=== PATIENT | male | born 1950 | race Caucasian/White ===

== ENCOUNTER → 2021-05-08 | Outpatient (CLI) | payer MEDICARE | LOC: CARD 09:06 | PROVIDERS: ATTEND Family Medicine | DX: I51.7 Cardiomegaly (principal) | CPT/HCPCS: 93306 ==

== ENCOUNTER → 2021-06-14 | Outpatient (CLI) | payer MEDICARE ==
[~2021-06-14] VITALS: Ht 172 cm; Wt 107.0 kg
[~2021-06-14] MED LIST: CATHETER FLUSH 10 ML SYR IV PRN
[2021-06-14 08:47] VITALS: BP 157/70
--- NOTE | 2021-06-14 15:25 | NUCLEAR STRESS TEST ---
TREADMILL NUCLEAR STRESS TEST Date of procedure: 06/14/2021. Primary care provider: Obed Godinez MD. Admitting physician: Soham Reynolds Jr., MD. INDICATION: Abnormal ECG. BASELINE ELECTROCARDIOGRAM: Sinus rhythm with occasional premature ventricular complexes, left anterior hemiblock and right bundle branch block. STRESS TEST PROCEDURE: The patient was exercised for a total of 8 minutes and 26 seconds of the standard Paulo protocol achieving a maximum MET level of 9.7. The resting heart rate was 65 bpm and the peak heart rate was 124 bpm, which represents 82% of the maximum predicted heart rate. The resting blood pressure was 157/70 mmHg and the peak blood pressure was 213/74 mmHg. This represents a suboptimal heart rate and a hypertensive blood pressure response to exercise. The test was stopped due to fatigue. There was no chest discomfort during the test. There were no arrhythmias during the test. There were no significant stress induced electrocardiogram changes. The patient exhibited excellent exercise capacity for age. NUCLEAR PROCEDURE: The patient was administered 10.4 mCi of intravenous technetium 99m Tetrofosmin at rest for the rest images. The patient was subsequently administered 29.4 mCi of intravenous technetium 99 M Tetrofosmin at peak stress for the stress images. Following an appropriate wait after each injection, imaging was obtained. The images were subsequently processed and reformatted in the usual views. Gated imaging was obtained. The image quality was adequate but with some gastrointestinal attenuation artifact. CT attenuation correction was used as an adjunct to standard imaging. Both the corrected and uncorrected images were reviewed for interpretation. NUCLEAR RESULTS: There was normal myocardial perfusion in all segments without evidence of infarction or ischemia. There was normal left ventricular chamber size with an end-diastolic volume of 65 mL and an end-systolic volume of 19 mL. There was no evidence of transient ischemic dilatation. The TID ratio was 1.03. There was normal wall motion in all segments with a calculated ejection fraction of 71%. IMPRESSION: 1. Suboptimal heart rate and a hypertensive blood pressure response to exercise. 2. There was no exercise-induced chest discomfort. 3. There were frequent premature ventricular complexes throughout the test. 4. There were no stress-induced electrocardiogram changes. 5. The patient exhibited excellent exercise capacity for age at 8 minutes and 26 seconds of the Paulo protocol. 6. There was normal myocardial perfusion imaging in all segments without evidence of infarction or ischemia. However, the patient did not quite reach his target heart rate. 7. There was normal wall motion in all segments with a calculated ejection f raction of 71%. Certain portions of this document may have been dictated utilizing voice recognition technology. Inherent to this technology, typographical and grammatical errors may exist. As much as I am diligent to identify and correct these mistakes, some errors may remain in the document. SOHAM REYNOLDS JR, MD Jun 14, 2021 15:25
== END ==
LOC: CARD 07:26
PROVIDERS: ATTEND Internal Medicine Cardiovascular Disease
DX: R94.31 Abnormal electrocardiogram [ECG] [EKG] (principal)
CPT/HCPCS: 78452; 93017; A9502

== ENCOUNTER → 2021-07-19 | Outpatient (CLI) | payer MEDICARE ==
[2021-07-19 12:15] LABS: CALCIUM 9.4 MG/DL (8.5-10.1); CREATININE SERUM 1.19 MG/DL (0.60-1.30); POTASSIUM 4.1 MMOL/L (3.6-5.0)
== END ==
LOC: LAB 11:17
PROVIDERS: ATTEND Internal Medicine Cardiovascular Disease
DX: I10 Essential (primary) hypertension (principal)
CPT/HCPCS: 36415; 80048

== ENCOUNTER → 2022-12-06 | Outpatient (CLI) | payer MEDICARE | LOC: CARD 10:46 | PROVIDERS: ATTEND Family Medicine | DX: I11.9 Hypertensive heart disease without heart failure (principal); I08.0 Rheumatic disorders of both mitral and aortic valves; E11.69 Type 2 diabetes mellitus with other specified complication | CPT/HCPCS: 93306 ==

== ENCOUNTER → 2022-12-09 | Outpatient (CLI) | payer MEDICARE ==
[~2022-12-09] MED LIST changes: -CATHETER FLUSH 10 ML SYR IV PRN; +RT-ALBUTEROL SULF 2.5 MG/3 ML PRE-MIX VIAL INH ONE
== END ==
LOC: RT 12:21
PROVIDERS: ATTEND Family Medicine
DX: Z00.00 Encounter for general adult medical examination without abnormal findings (principal); R06.02 Shortness of breath
CPT/HCPCS: 94060; 94726; 94729

== ENCOUNTER 2022-12-13 11:52 | Inpatient (IN) | payer MEDICARE ==
[~2022-12-13] VITALS: Ht 172.7 cm; Wt 112.6 kg
--- NOTE | 2022-12-13 12:23 | ED General ---
General Chief Complaint: Respiratory Problems Stated Complaint: FLUID BUILDUP Nursing Triage Note: PT PRESENTS TO ED VIA POV FROM HOME WITH COMPLAINTS OF INCREASED SWELLING X 6 DAYS WITH INCREASED SOA. PT STATES HE HAD ECHO DONE 1 WEEK AGO WELL A PULMONARY FUNCTION TEST ON FRIDAY. PT STATES HE WAS STARTED ON 20 MG LASIX ON FRIDAY BUT HAS NOT SEEN IMPROVEMENT. Source of Information: Patient Exam Limitations: No Limitations History of Present Illness Date Seen by Provider: Dec 13, 2022 Time Seen by Provider: 12:19 Initial Comments To ER by private vehicle. Patient provides his own history. He has had new onset pedal edema for 6 days with increased shortness of breath. He had an echocardiogram done 1 week ago here as well as pulmonary function test. His primary care provider Could not he started him on 20 mg of Lasix 2 days ago but he has not yet noticed any improvement in the swelling of his ankles or dyspnea. States that he has had palpitations off and on for many years but no diagnosis of atrial fibrillation. Does not smoke and has no known coronary disease. He was told on his echocardiogram that part of his heart was not moving consistent with prior heart attack. Timing/Duration: 1 Week, Getting Worse Severity: Moderate Associated Systoms: No Chest Pain Allergies and Home Medications Allergies Coded Allergies: codeine (Unverified Allergy, Unknown, 06/14/21) Patient Home Medication List Home Medication List Reviewed: Yes Review of Systems Review of Systems Constitutional: see HPI; No chills, No fever Past Ydsxhjr-Siwziq-Pkkgwg Hx Patient Social History Tobacco Use?: No Substance use?: No Alcohol Use?: Yes Alcohol Frequency: Couple times a week Pt feels they are or have been: No Past Medical History Surgery/Hospitalization HX: PMH: HTN, HIGH CHOL, DM Physical Exam Vital Signs Vital Signs - First Documented 12/13/22 11:59 Temp 36.0 Pulse 78 Resp 16 B/P (MAP) 130/106 (114) Pulse Ox 98 Capillary Refill : Less Than 3 Seconds Height, Weight, BMI Height: '" Weight: lbs. oz. kg; 36.00 BMI Method: General Appearance: No Apparent Distress, WD/WN, Other (Alert and oriented no distress very pleasant no distress speaks in full sentences. Oxygen 98% room air. Heart rate 1 45-1 50 irregular. Blood pressure 130/100.) Eyes: Bilateral Eye Normal Inspection, Bilateral Eye PERRL, Bilateral Eye EOMI Neck: Full Range of Motion, Normal Inspection Respiratory: No Accessory Muscle Use, No Respiratory Distress, Other (Crackles right base) Cardiovascular: Irregularly Irregular, Tachycardia Gastrointestinal: Normal Bowel Sounds, Non Tender, Soft Extremity: Normal Capillary Refill, Normal Inspection, Other (2+ pedal edema bilateral lower extremities) Neurologic/Psychiatric: Alert, Oriented x3 Skin: Normal Color, Warm/Dry Progress/Results/Core Measures Suspected Sepsis SIRS Temperature: Pulse: 78 Respiratory Rate: 16 Laboratory Tests 12/13/22 12:04: White Blood Count 6.4 Blood Pressure 130 /106 Mean: 114 Laboratory Tests 12/13/22 12:04: Creatinine 1.44H, INR Comment 1.3, Platelet Count 160, Total Bilirubin 1.2H Results/Orders Lab Results Laboratory Tests Test 12/13/22 12:04 Range/Units White Blood Count 6.4 4.3-11.0 10^3/uL Red Blood Count 4.37 4.30-5.52 10^6/uL Hemoglobin 14.7 13.3-17.7 g/dL Hematocrit 44 40-54 % Mean Corpuscular Volume 100 H 80-99 fL Mean Corpuscular Hemoglobin 34 25-34 pg Mean Corpuscular Hemoglobin Concent 34 32-36 g/dL Red Cell Distribution Width 13.7 10.0-14.5 % Platelet Count 160 130-400 10^3/uL Mean Platelet Volume 11.4 9.0-12.2 fL Immature Granulocyte % (Auto) 1 % Neutrophils (%) (Auto) 59 42-75 % Lymphocytes (%) (Auto) 26 12-44 % Monocytes (%) (Auto) 14 H 0-12 % Eosinophils (%) (Auto) 0 0-10 % Basophils (%) (Auto) 0 0-10 % Neutrophils # (Auto) 3.8 1.8-7.8 10^3/uL Lymphocytes # (Auto) 1.7 1.0-4.0 10^3/uL Monocytes # (Auto) 0.9 0.0-1.0 10^3/uL Eosinophils # (Auto) 0.0 0.0-0.3 10^3/uL Basophils # (Auto) 0.0 0.0-0.1 10^3/uL Immature Granulocyte # (Auto) 0.1 0.0-0.1 10^3/uL Prothrombin Time 16.6 H 12.2-14.7 SEC INR Comment 1.3 0.8-1.4 Activated Partial Thromboplast Time 30 24-35 SEC Sodium Level 134 L 135-145 MMOL/L Potassium Level 3.7 3.6-5.0 MMOL/L Chloride Level 99 98-107 MMOL/L Carbon Dioxide Level 20 L 21-32 MMOL/L Anion Gap 15 H 5-14 MMOL/L Blood Urea Nitrogen 18 7-18 MG/DL Creatinine 1.44 H 0.60-1.30 MG/DL Estimat Glomerular Filtration Rate 52 BUN/Creatinine Ratio 13 Glucose Level 211 H 70-105 MG/DL Calcium Level 9.5 8.5-10.1 MG/DL Corrected Calcium 9.3 8.5-10.1 MG/DL Magnesium Level 2.0 1.6-2.4 MG/DL Total Bilirubin 1.2 H 0.1-1.0 MG/DL Aspartate Amino Transf (AST/SGOT) 108 H 5-34 U/L Alanine Aminotransferase (ALT/SGPT) 169 H 0-55 U/L Alkaline Phosphatase 79 40-136 U/L Myoglobin 106.3 H 10.0-92.0 NG/ML Troponin I 0.050 H <0.028 NG/ML B-Type Natriuretic Peptide 940.0 H <100.0 PG/ML Total Protein 6.8 6.4-8.2 GM/DL Albumin 4.3 3.2-4.5 GM/DL My Orders Orders - JERICHO ERICKSON APRN Cbc With Automated Diff (12/13/22 12:17) Magnesium (12/13/22 12:17) Chest 1 View, Ap/Pa Only (12/13/22 12:17) Ekg Tracing (12/13/22 12:17) Comprehensive Metabolic Panel (12/13/22 12:17) Myoglobin Serum (12/13/22 12:17) Protime With Inr (12/13/22 12:17) Partial Thromboplastin Time (12/13/22 12:17) O2 (12/13/22 12:17) Monitor-Rhythm Ecg Trace Only (12/13/22 12:17) Lipid Panel (12/14/22 06:00) Ed Iv/Invasive Line Start (12/13/22 12:17) Bnp Hannah (12/13/22 12:17) Troponin I Hannah (12/13/22 12:17) Aspirin Chewable Tablet (Baby Aspirin Ch (12/13/22 12:30) Diltiazem Drip Pre-Mix (Cardizem Drip Pr (12/13/22 12:30) Diltiazem Injection (Cardizem Injection) (12/13/22 12:30) Ekg Tracing (12/13/22 12:58) Furosemide Injection (Lasix Injection) (12/13/22 13:30) Potassium Chloride (Tablet) (K Dur Table (12/13/22 14:00) Apixaban Tablet (Eliquis Tablet) (12/13/22 14:00) Ed Admission (Communication) (12/13/22 13:46) Medications Given in ED Current Medications Medications Dose Ordered Sig/Isaac Route Start Time Stop Time Status Last Admin Dose Admin Aspirin 324 mg ONCE ONCE PO 12/13/22 12:30 12/13/22 12:31 DC 12/13/22 12:29 324 MG Diltiazem HCl 10 mg ONCE ONCE IVP 12/13/22 12:30 12/13/22 12:31 DC 12/13/22 12:28 10 MG Furosemide 40 mg ONCE ONCE IVP 12/13/22 13:30 12/13/22 13:31 DC 12/13/22 13:30 40 MG Vital Signs/I&O 12/13/22 12/13/22 12/13/22 11:59 12:28 12:29 Temp 36.0 Pulse 78 144 144 Resp 16 B/P (MAP) 130/106 (114) 131/100 131/100 Pulse Ox 98 Capillary Refill : Less Than 3 Seconds Blood Pressure Mean: 114 Departure Communication (Admissions) NAME: DESMOND WICK [facility] REC#: [id number] PT STATUS: REG ER : 1950 PHYSICIAN: JERICHO ERICKSON APRN ADMIT DATE: 12/13/22/ER Draft Date of Exam:12/13/22 CHEST 1 VIEW, AP/PA ONLY Indication: Dyspnea and increasing swelling AP view of the chest is obtained. There is no previous study for comparison. There is cardiomegaly with mild pulmonary venous congestion. No obvious overt edema is present. There is mild basilar atelectasis, greater on the right. IMPRESSION: Cardiomegaly and mild pulmonary venous congestion with mild basilar atelectasis, greater on the right. No other acute abnormality is seen. Dictated on workstation # [id number] Dict: 12/13/22 1312 Trans: 12/13/22 1314 [facility] [id number] Interpreted by: ISABELL KU MD showing cavity size normal with moderate concentric hypertrophy more significant in the septum with mildly reduced systolic function with an ejection fraction of 45 to 50%. Hypokinesis of the apical septum and apical myocardium. EKG reviewed here showing a rate of 139 regular with QRS duration of 160 ms with computer inter pretation is junctional tachycardia which I would agree with, absent P waves and regular QRS complexes. 1310-heart rate has slowed down to 74 atrial fibrillation. Blood pressure remains 119/89. This is with a Cardizem drip at 10 mg an hour after 10 mg umair mikhail. He does feel significantly better in regards to his shortness of breath. I did turn off the Cardizem drip for about 5 minutes before his rate increased back to 130 so the drip was restarted at 10 mg an hour. 1330-labs back. Troponin mildly elevated at 0.050 though he denies chest pain. BNP elevated at 940, CBC looks fine, CMP shows elevated liver enzymes. 40 mg of Lasix ordered IV here. Repeat EKG at the slower rate shows sinus rhythm with multiple PAC and PVC. 1351-spoke with Dr. Solares, will start Desmond on Eliquis 5 mg p.o. twice daily, Lasix 40 mg IV twice daily, potassium supplementation at 20 mEq p.o. twice daily. We will continue the Cardizem drip and he will transition that to p.o. Will admit to ICU to Dr. Vitale. Impression Primary Impression: CHF (congestive heart failure) Additional Impression: Junctional tachycardia Disposition: ADMITTED INPATIENT Condition: Stable Admissions Decision to Admit Reason: Admit from ER (General) Departure-Patient Inst. Referrals: GUSTAVO MCELROY MD (PCP/Family) Primary Care Physician JERICHO ERICKSON APRN Dec 13, 2022 12:23
[2022-12-13 12:28] LABS: BASOPHILS % (AUTO) 0 % (0-10); EOSINOPHILS % (AUTO) 0 % (0-10); HEMATOCRIT 44 % (40-54); HEMOGLOBIN 14.7 g/dL (13.3-17.7); LYMPHOCYTES # (AUTO) 1.7 10^3/uL (1.0-4.0); LYMPHOCYTES % (AUTO) 26 % (12-44); MEAN CORPUSCULAR HEMOGLOBIN 34 pg (25-34); MEAN CORPUSCULAR HGB CONC 34 g/dL (32-36); MEAN CORPUSCULAR VOLUME 100 fL (80-99); MEAN PLATELET VOLUME 11.4 fL (9.0-12.2); MONOCYTES # (AUTO) 0.9 10^3/uL (0.0-1.0); MONOCYTES % (AUTO) 14 % (0-12); NEUTROPHILS # (AUTO) 3.8 10^3/uL (1.8-7.8); NEUTROPHILS % (AUTO) 59 % (42-75); PLATELET COUNT 160 10^3/uL (130-400); WHITE BLOOD COUNT 6.4 10^3/uL (4.3-11.0)
[2022-12-13] MEDS ORDERED: ASPIRIN 81 MG CHEW (CHILDREN'S ASA) PO ONE (12:30)
[2022-12-13] MEDS ORDERED: dilTIAZem DRIP PRE-MIX 125 ML IV SCH (12:30)
[2022-12-13 12:50] LABS: ALBUMIN 4.3 GM/DL (3.2-4.5)
[2022-12-13 12:51] LABS: POTASSIUM 3.7 MMOL/L (3.6-5.0)
[2022-12-13 12:52] LABS: CALCIUM 9.5 MG/DL (8.5-10.1)
[2022-12-13 12:53] LABS: TOTAL PROTEIN 6.8 GM/DL (6.4-8.2)
[2022-12-13 12:55] LABS: BILIRUBIN,TOTAL 1.2 MG/DL (0.1-1.0)
[2022-12-13 12:57] LABS: CREATININE SERUM 1.44 MG/DL (0.60-1.30)
[2022-12-13 13:05] LABS: INR 1.3 (0.8-1.4); PROTHROMBIN TIME PATIENT 16.6 SEC (12.2-14.7)
--- NOTE | 2022-12-13 13:15 | Diagnostic Imaging Report ---
Indication: Dyspnea and increasing swelling AP view of the chest is obtained. There is no previous study for comparison. There is cardiomegaly with mild pulmonary venous congestion. No obvious overt edema is present. There is mild basilar atelectasis, greater on the right. IMPRESSION: Cardiomegaly and mild pulmonary venous congestion with mild basilar atelectasis, greater on the right. No other acute abnormality is seen. Dictated by: Dictated on workstation # [id number]
[2022-12-13] MEDS ORDERED: FUROSEMIDE 40 MG/4 ML INJ (LASIX) IVP ONE (13:30)
[2022-12-13] MEDS ORDERED: APIXABAN 5 MG (ELIQUIS) TABLET PO ONE (14:00)
[2022-12-13] MEDS ORDERED: KCL 20 MEQ TAB (K-DUR) PO ONE (14:00)
[2022-12-13] MEDS ORDERED: MILK OF MAGNESIA 400 MG/5 ML 30 ML UDC PO PRN (14:45)
[2022-12-13] MEDS ORDERED: polyethylene glycoL POWDER 17 GM (MIRALAX) PACK PO PRN (14:45)
[2022-12-13] MEDS ORDERED: CALCIUM CARBONATE 500 MG (TUMS) TAB.CHEW PO PRN (14:45)
[2022-12-13] MEDS ORDERED: NS IV 500 ML 500 ML IV PRN (14:45)
[2022-12-13] MEDS ORDERED: BISACODYL 10 MG SUPP (DULCOLAX) PR PRN (14:45)
[2022-12-13] MEDS ORDERED: ONDANSETRON 4 MG/2 ML (SDV) Z0FRAN IV PRN (14:45)
[2022-12-13] MEDS ORDERED: ONDANSETRON 4 MG (ZOFRAN) ORAL DISSOLVE TAB PO PRN (14:45)
[2022-12-13] MEDS ORDERED: diphenhydrAMINE 50 MG/ML INJ (BENADRYL) IVP PRN (14:45)
[2022-12-13] MEDS ORDERED: ACETAMINOPHEN 325 MG TABLET PO PRN (14:45)
[2022-12-13] MEDS ORDERED: MELATONIN 3 MG TABLET PO PRN (14:45)
[2022-12-13] MEDS ORDERED: diphenhydrAMINE 25 MG TAB (BENADRYL) PO PRN (14:45)
[2022-12-13] MEDS ORDERED: ALPRAZolam 0.5 MG (XANAX) TAB PO PRN (14:45)
[2022-12-13] MEDS ORDERED: LACTULOSE SYRUP 10GM/15ML (ENULOSE) 30ML UDC PO PRN (14:45)
[2022-12-13] MEDS ORDERED: ANTACID SUSP 30 ML UDC (MYLANTA) PO PRN (14:45)
--- NOTE | 2022-12-13 14:57 | Consultation-Cardiology ---
HPI-Cardiology Cardiology Consultation: Date of Consultation 12/13/22 Time Seen by a Provider: 14:30 Date of Admission 12-13-22 Attending Physician Obed Godinez MD Admitting Physician Admitting Physician: Kendal Vitale DO Attending Physician: Kendal Vitale DO Consulting Physician Alyx Solares MD HPI: Chief Complaint: New onset a-fib Progressive dyspnea Mr. Godoy is a 72 yr old male admitted to ICU 11 from the ED. He reports progressive SOB for the last few months, which became much worse with increasing bilat LE swelling over the last few days along with abdominal bloating. He states he was on Lasix at home as a "trial" for the last few days d/t LE swelling; however, he reports it did not help at all. He reports episodes of palpitations for the last few years. He denies any palpitations currently. No c/o n/v/d. No c/o fever or chills. No c/o syncope or near syncope. He reports he has an at home sleep study to do, but has not completed it yet. Review of Systems-Cardiology Review of Systems Constitutional: No chills, No fever; malaise Eyes: No vision change Ears/Nose/Throat: No epistaxis, No recent hearing loss Respiratory: As described under HPI Cardiovascular: As described under HPI Gastrointestinal: No constipation, No diarrhea, No vomiting Genitourinary: No dysuria Musculoskeletal: no symptoms reported Skin: No rash on exposed areas, No ulcerations on exposed areas Psychiatric/Neurological: No anxiety, No depression, No seizure, No focal weakness, No syncope UZP-Gzpceh-Wapxhg Hx Patient Social History Alcohol Use?: Yes Pt feels they are or have been: No Past Medical History PMH As described under Assessment. Family Medical History Family Medical History: He reports his mother had atrial fibrillation and HTN. He reports a brother with an "enlarged" heart. Allergies and Home Medications Allergies Coded Allergies: codeine (Unverified Allergy, Unknown, 06/14/21) Patient Home Medication List Amlodipine Besylate (Amlodipine Besylate) 5 Mg Tablet, 5 MG PO DAILY, (Reported) Entered as Reported by: JIM PARDO on 12/13/22 1521 Last Action: Held Aspirin (Aspirin EC) 81 Mg Tablet.dr, 81 MG PO DAILY, (Reported) Entered as Reported by: JIM PARDO on 12/13/221520 Last Action: Continued Atorvastatin Calcium (Atorvastatin Calcium) 40 Mg Tablet, 40 MG PO HS, (Reported) Entered as Reported by: JIM PARDO on 12/13/221520 Last Action: Continued Citalopram Hydrobromide (Citalopram HBr) 20 Mg Tablet, 20 MG PO DAILY, (Reported) Entered as Reported by: JIM PARDO on 12/13/221520 Last Action: Continued Furosemide (Furosemide) 20 Mg Tablet, 20 MG PO DAILY, (Reported) Entered as Reported by: JIM PARDO on 12/13/221520 Last Action: Held Lisinopril (Lisinopril) 20 Mg Tablet, 20 MG PO DAILY, (Reported) Entered as Reported by: JIM PARDO on 12/13/221520 Last Action: Held Metoprolol Tartrate (Metoprolol Tartrate) 25 Mg Tablet, 25 MG PO BID, (Reported) Entered as Reported by: JIM PARDO on 12/13/221520 Last Action: Held Multivitamin (Multivitamin) 1 Each Tablet, 1 EACH PO DAILY, (Reported) Entered as Reported by: JIM PARDO on 12/13/221520 Last Action: Converted Physical Exam-Cardiology Physical Exam Vital Signs/I&O 12/15/22 12/16/22 12/16/22 12/16/22 23:38 01:00 04:04 07:02 Temp 36.6 37.4 Pulse 69 68 58 72 Resp 16 16 B/P (MAP) 134/72 (92) 136/74 (94) Pulse Ox 94 94 O2 Delivery Room Air Room Air 12/16/22 07:30 Temp 36.4 Pulse 71 Resp 18 B/P (MAP) 155/81 (105) Pulse Ox 96 O2 Delivery Room Air 12/16/22 00:00 Intake Total 1540 ml Balance 1540 ml Capillary Refill : Less Than 3 Seconds Constitutional: AAO x 3, well-developed, well-nourished HEENT: PERRL, hearing is well preserved, oral hygience is good Neck: No carotid bruit Respiratory: No accessory muscle use, No respiratory distress; chest expansion is symmetric, chest is bilaterally symmetric, other (diminished lower lobes bilat; dyspneic with conversation) Cardiovascular: irregularly irregular; No JVD; tachycardia, S1 and S2 Gastrointestinal: No tender; soft, round, audible bowel sounds Extremities: other (bilat mod pitting LE swelling) Neurologic/Psychiatric: grossly intact (moves all extremities) Skin: No rash on exposed areas, No ulcerations on exposed areas Data Review Labs Laboratory Tests 12/16/22 05:09: White Blood Count 5.7, Red Blood Count 4.07L, Hemoglobin 13.7, Hematocrit 40, Mean Corpuscular Volume 99, Mean Corpuscular Hemoglobin 34, Mean Corpuscular Hemoglobin Concent 34, Red Cell Distribution Width 13.3, Platelet Count 123L, Mean Platelet Volume 11.7, Immature Granulocyte % (Auto) 1, Neutrophils (%) (Auto) 55, Lymphocytes (%) (Auto) 25, Monocytes (%) (Auto) 18H, Eosinophils (%) (Auto) 1, Basophils (%) (Auto) 0, Neutrophils # (Auto) 3.2, Lymphocytes # (Auto) 1.4, Monocytes # (Auto) 1.0, Eosinophils # (Auto) 0.0, Basophils # (Auto) 0.0, Immature Granulocyte # (Auto) 0.1, Percent Immature Platelet Fraction 7.2, Sodium Level 139, Potassium Level 3.3L, Chloride Level 101, Carbon Dioxide Level 26, Anion Gap 12, Blood Urea Nitrogen 18, Creatinine 1.05, Estimat Glomerular Filtration Rate 75, BUN/Creatinine Ratio 17, Glucose Level 107H, Calcium Level 8.9, Corrected Calcium 9.1, Magnesium Level 1.9, Total Bilirubin 0.9, Aspartate Amino Transf (AST/SGOT) 115H, Alanine Aminotransferase (ALT/SGPT) 355H, Alkaline Phosphatase 80, Total Protein 6.1L, Albumin 3.8, Smear Scan YES Microbiology 12/13/22 MRSA Screen - Final, Complete MRSA not isolated Radiology NAME: DESMOND GODOY [facility] REC#: [id number] PT STATUS: REG ER : 1950 PHYSICIAN: JERICHO ERICKSON APRN ADMIT DATE: 12/13/22/ER Signed Date of Exam:12/13/22 CHEST 1 VIEW, AP/PA ONLY Indication: Dyspnea and increasing swelling AP view of the chest is obtained. There is no previous study for comparison. There is cardiomegaly with mild pulmonary venous congestion. No obvious overt edema is present. There is mild basilar atelectasis, greater on the right. IMPRESSION: Cardiomegaly and mild pulmonary venous congestion with mild basilar atelectasis, greater on the right. No other acute abnormality is seen. Dictated by: Dictated on workstation # [id number] Dict: 12/13/22 1312 Trans: 12/13/22 1400 [facility] [id number] Interpreted by: ISABELL KU MD Electronically signed by: ISABELL KU MD 12/13/22 1400 A/P-Cardiology Assessment/Admission Diagnosis New onset a-fib with RVR - first dx on ECG of 12-13-22 in the ED Acute on chronic diastolic CHF: - ECHOCARDIOGRAM (05/08/2021) by Dr. Reynolds: Normal left ventricular chamber size with mild concentric left ventricular hypertrophy. Normal left ventricular systolic function with an estimated ejection fraction of 60-65%. The left ventricular diastolic function is indeterminate.,The left atrium is mild to moderately dilated.The estimated pulmonary artery systolic pressure is 35 mmHg. - Echocardiogram of 12-06-[address] Reynolds showed: LVEF 45-50%. Hypokinesis of the apical septal and apical myocardium. LA is mod dilatd. RA is mildly dilated. Mild AoV sclerosis with mild AoR. Mod MR. PASP 45 mmHg CAD - CARDIAC CATHETERIZATION (10/08/2013) at [facility] in [place], [place] by Dr. Beebe: Mild obstruction in the mid segment of the left anterior descending coronary artery and origin of the first diagonal branch of the LAD. Normal right coronary artery and circumflex artery. Normal left ventricular angiogram. - TREADMILL NUCLEAR STRESS TEST (06/14/2021) by Dr. Reynolds: 1. Suboptimal heart rate and a hypertensive blood pressure response to exercise. 2. There was no exercise-induced chest discomfort. 3. There were frequent premature ventricular complexes throughout the test. 4. There were no stress-induced electrocardiogram changes. 5. The patient exhibited excellent exercise capacity for age at 8 minutes and 26 seconds of the Paulo protocol. 6. There was normal myocardial perfusion imaging in all segments without evidence of infarction or ischemia. However, the patient did not quite reach his target heart rate. 7. There was normal wall motion in all segments with a calculated ejection fraction of 71%. HTN HLD Renal insufficiency - undetermined length of time Elevated liver enzymes - possibly secondary to hepato-biliary congestion d/t decompensated CHF Elevated BMI - approx 37 Suspected sleep apnea Discussion and Recomendations Progressive dyspnea likely d/t acute on chronic diastolic/systolic CHF - treat with diuretics - start Coreg and Lisinopril low dose and titrate as tolerated Newly dx atrial fibrillation with RVR - Cardizem gtt - start OAC with Eliquis H/O CAD - start ASA Suspected sleep apnea - advise he complete out pt sleep studies Monitor lab - replace electrolytes as indicated We would like to thank medical services for this consult Further recs will be based on his hospital course PALMER SUTTON Dec 13, 2022 14:57
[2022-12-13 15:15] VITALS: BP 114/74
[2022-12-13] MEDS ORDERED: ASPI-1238 PO (15:21)
[2022-12-13] MEDS ORDERED: MULT-1136 PO (15:21)
[2022-12-13] MEDS ORDERED: CITA20TA9 PO (15:21)
[2022-12-13] MEDS ORDERED: AMLO-250 PO (15:21)
[2022-12-13] MEDS ORDERED: METO-333 PO (15:21)
[2022-12-13] MEDS ORDERED: ATOR40TA70 PO (15:21)
[2022-12-13] MEDS ORDERED: FURO20TA4 PO (15:21)
[2022-12-13] MEDS ORDERED: LISI20TA26 PO (15:21)
[2022-12-13] MEDS ORDERED: FLU QUADRIvalent (6 months+) 60 mcg/0.5 ml 2022-23 (Fluzone) IM ONE (15:30)
[2022-12-13] MEDS: dilTIAZem DRIP PRE-MIX 125 ML IV SCH (16:05)
--- NOTE | 2022-12-13 17:27 | Consultation-Cardiology ---
HPI-Cardiology Cardiology Consultation: Date of Consultation 12/13/22 Time Seen by a Provider: 17:00 Date of Admission Attending Physician Obed Godinez MD Admitting Physician Admitting Physician: Kendal Vitale DO Attending Physician: Kendal Vitale DO Consulting Physician RETA VARELA MD, MA, FACP, FACC, FSCAI, CCDS HPI: Chief Complaint: Reason for Card consult: New onset a-fib; Progressive dyspnea Mr. Godoy is a 72 yr old male admitted to ICU 11 from the ED. He reports progressive SOB for the last few months, which became much worse with increasing bilat LE swelling over the last few days along with abdominal bloating. He states he was on Lasix at home as a "trial" for the last few days d/t LE s welling; however, he reports it did not help at all. He reports episodes of palpitations for the last few years. He denies any palpitations currently. No c/o n/v/d. No c/o fever or chills. No c/o syncope or near syncope. He reports he has an at home sleep study to do, but has not completed it yet. Review of Systems-Cardiology Review of Systems Constitutional: No chills, No fever; malaise Eyes: No vision change Ears/Nose/Throat: No epistaxis, No recent hearing loss Respiratory: As described under HPI Cardiovascular: As described under HPI Gastrointestinal: No constipation, No diarrhea, No vomiting Genitourinary: No dysuria Musculoskeletal: no symptoms reported Skin: No rash on exposed areas, No ulcerations on exposed areas Psychiatric/Neurological: No anxiety, No depression, No seizure, No focal weakness, No syncope ORD-Emqgwq-Ookczs Hx Patient Social History Have you traveled recently?: No Alcohol Use?: Yes Pt feels they are or have been: No Past Medical History PMH As described under Assessment. Family Medical History Family Medical History: He reports his mother had atrial fibrillation and HTN. He reports a brother with an "enlarged" heart. Allergies and Home Medications Allergies Coded Allergies: codeine (Unverified Allergy, Unknown, 06/14/21) Patient Home Medication List Home Medication List Reviewed: Yes Amlodipine Besylate (Amlodipine Besylate) 5 Mg Tablet, 5 MG PO DAILY, (Reported) Entered as Reported by: JIM PARDO on 12/13/221520 Last Action: Reviewed Aspirin (Aspirin EC) 81 Mg Tablet.dr, 81 MG PO DAILY, (Reported) Entered as Reported by: JIM PARDO on 12/13/221520 Last Action: Reviewed Atorvastatin Calcium (Atorvastatin Calcium) 40 Mg Tablet, 40 MG PO HS, (Reported) Entered as Reported by: JIM PARDO on 12/13/221520 Last Action: Reviewed Citalopram Hydrobromide (Citalopram HBr) 20 Mg Tablet, 20 MG PO DAILY, ( Reported) Entered as Reported by: JIM PARDO on 12/13/221520 Last Action: Reviewed Furosemide (Furosemide) 20 Mg Tablet, 20 MG PO DAILY, (Reported) Entered as Reported by: JIM PARDO on 12/13/221520 Last Action: Reviewed Lisinopril (Lisinopril) 20 Mg Tablet, 20 MG PO DAILY, (Reported) Entered as Reported by: JIM PARDO on 12/13/221520 Last Action: Reviewed Metoprolol Tartrate (Metoprolol Tartrate) 25 Mg Tablet, 25 MG PO BID, (Reported) Entered as Reported by: JIM PARDO on 12/13/221520 Last Action: Reviewed Multivitamin (Multivitamin) 1 Each Tablet, 1 EACH PO DAILY, (Reported) Entered as Reported by: JIM PARDO on 12/13/221520 Last Action: Reviewed Physical Exam-Cardiology Physical Exam Vital Signs/I&O 12/13/22 12/13/22 12/13/22 12/13/22 11:59 11:59 12:28 12:29 Temp 36.0 Pulse 78 144 144 Resp 16 B/P (MAP) 130/106 (114) 131/100 131/100 Pulse Ox 98 97 O2 Delivery Room Air 12/13/22 12/13/22 12/13/22 12/13/22 14:30 14:30 15:15 15:39 Temp 36.0 Pulse 72 131 131 Resp 16 B/P (MAP) 114/74 (87) Pulse Ox 94 94 O2 Delivery Room Air Nasal Cannula O2 Flow Rate 2.00 12/13/22 16:00 Pulse 74 Resp 24 B/P (MAP) 111/84 (93) Pulse Ox 93 O2 Delivery Nasal Cannula O2 Flow Rate 2.00 Capillary Refill : Less Than 3 Seconds Constitutional: AAO x 3, well-developed, well-nourished HEENT: PERRL, hearing is well preserved, oral hygience is good Neck: No carotid bruit Respiratory: No accessory muscle use, No respiratory distress; chest expansion is symmetric, chest is bilaterally symmetric, other (diminished lower lobes bilat; dyspneic with conversation) Cardiovascular: irregularly irregular; No JVD; tachycardia, S1 and S2 Gastrointestinal: No tender; soft, round, audible bowel sounds Extremities: other (bilat mod pitting LE swelling) Neurologic/Psychiatric: grossly intact (moves all extremities) Skin: No rash on exposed areas, No ulcerations on exposed areas Data Review Labs Laboratory Tests 12/13/22 12:04: White Blood Count 6.4, Red Blood Count 4.37, Hemoglobin 14.7, Hematocrit 44, Mean Corpuscular Volume 100H, Mean Corpuscular Hemoglobin 34, Mean Corpuscular Hemoglobin Concent 34, Red Cell Distribution Width 13.7, Platelet Count 160, Mean Platelet Volume 11.4, Immature Granulocyte % (Auto) 1, Neutrophils (%) (Auto) 59, Lymphocytes (%) (Auto) 26, Monocytes (%) (Auto) 14H, Eosinophils (%) (Auto) 0, Basophils (%) (Auto) 0, Neutrophils # (Auto) 3.8, Lymphocytes # (Auto) 1.7, Monocytes # (Auto) 0.9, Eosinophils # (Auto) 0.0, Basophils # (Auto) 0.0, Immature Granulocyte # (Auto) 0.1, Prothrombin Time 16.6H, INR Comment 1.3, Activated Partial Thromboplast Time 30, Sodium Level 134L, Potassium Level 3.7, Chloride Level 99, Carbon Dioxide Level 20L, Anion Gap 15H, Blood Urea Nitrogen 18, Creatinine 1.44H, Estimat Glomerular Filtration Rate 52, BUN/Creatinine Ratio 13, Glucose Level 211H, Calcium Level 9.5, Corrected Calcium 9.3, Magnesium Level 2.0, Total Bilirubin 1.2H, Aspartate Amino Transf (AST/SGOT) 108H, Alanine Aminotransferase (ALT/SGPT) 169H, Alkaline Phosphatase 79, Myoglobin 106.3H, Troponin I 0.050H, B-Type Natriuretic Peptide 940.0H, Total Protein 6.8, Albumin 4.3 Laboratory Tests 12/13/22 12:04 A/P-Cardiology Assessment/Admission Diagnosis New onset a-fib with RVR - first dx on ECG of 12-13-22 in the ED Acute on chronic diastolic CHF: - ECHOCARDIOGRAM (05/08/2021) by Dr. Reynolds: Normal left ventricular chamber size with mild concentric left ventricular hypertrophy. Normal left ventricular systolic function with an estimated ejection fraction of 60-65%. The left ventricular diastolic function is indeterminate.,The left atrium is mild to moderately dilated.The estimated pulmonary artery systolic pressure is 35 mmHg. - Echocardiogram of 12-06-[address] Reynolds showed: LVEF 45-50%. Hypokinesis of the apical septal and apical myocardium. LA is mod dilatd. RA is mildly dilated. Mild AoV sclerosis with mild AoR. Mod MR. PASP 45 mmHg CAD - CARDIAC CATHETERIZATION (10/08/2013) at [facility] in [place], [place] by Dr. Beebe: Mild obstruction in the mid segment of the left anterior descending coronary artery and origin of the first diagonal branch of the LAD. Normal right coronary artery and circumflex artery. Normal left ventricular angiogram. - TREADMILL NUCLEAR STRESS TEST (06/14/2021) by Dr. Reynolds: suboptimal but w/o evidence of ischemia or infarction and with LVEF 71% HTN HLD Renal insufficiency - undetermined length of time Elevated liver enzymes - possibly secondary to hepato-biliary congestion d/t decompensated CHF Elevated BMI - approx 37 Suspected sleep apnea Discussion and Recomendations Progressive dyspnea likely d/t acute on chronic diastolic/systolic CHF - treat with diuretics - start Coreg and Lisinopril low dose and titrate as tolerated Newly dx atrial fibrillation with RVR - Cardizem gtt - start OAC with Eliquis H/O CAD - start ASA Suspected sleep apnea - advise he complete out pt sleep studies Monitor lab - replace electrolytes as indicated We would like to thank medical services for this consult Further recs will be based on his hospital course RETA VARELA MD FACP FAC CCDS Dec 13, 2022 17:27
--- NOTE | 2022-12-13 17:57 | History & Physical-Hospitalist ---
History of Present Illness HPI/Chief Complaint Chief complaint: Shortness of breath HPI: This is a 72-year-old male clinic patient Dr. Godinez who has a past medical history of CAD previous stents who presents to the ICU following an ER work-up which revealed acute congestive heart failure with volume overload in need of IV diuresis and cardiology care. Patient is currently feeling about the same and has not urinated since Lasix 40 Mg given. Patient denies any pain. Source: patient Exam Limitations: no limitations Date Seen 12/13/22 Time Seen by a Provider: 18:00 Attending Physician Obed Godinez MD PCP Admitting Physician: Kendal Vitale DO Attending Physician: Kendal Vitale DO Referring Physician Date of Admission Dec 13, 2022 at 13:47 Home Medications & Allergies Home Medications Reviewed patient Home Medication Reconciliation performed by pharmacy medication reconciliations residential gas heat technician and/or nursing. Patients Allergies have been reviewed. Allergies Allergies Coded Allergies codeine (Unverified Allergy, Unknown, 06/14/21) Past Xhihgxk-Bwfucf-Ylpcla Hx Patient Social History Marrital Status: Employed/Student: retired Tobacco Use?: No Smoking Status: Former Smoker Smokeless Tobacco Frequency: Never a User Use of E-Cig and/or Vaping dev: No Substance use?: No Alcohol Use?: Yes Alcohol type: Hard Liquor Alcohol Frequency: Couple times a week Pt feels they are or have been: No Current Status Advance Directives: Yes Advance Directive Location: Home Primary Language: Nauruan Preferred Spoken Language: Nauruan Is interpretation needed?: No Sensory deficits: Vision impairment Implanted or Applied Medical D: Orthopedic hardware Past Medical History Chronic Edema/Swelling, Coronary Artery Disease, High Cholesterol, Hypertension Review of Systems Constitutional: see HPI EENTM: no symptoms reported Respiratory: dyspnea on exertion, short of breath Cardiovascular: edema Gastrointestinal: no symptoms reported Genitourinary: no symptoms reported Musculoskeletal: no symptoms reported Skin: no symptoms reported Psychiatric/Neurological: No Symptoms Reported All Other Systems Reviewed Negative Unless Noted: Yes Physical Exam Physical Exam Vital Signs Vital Signs - First Documented 12/13/22 12/13/22 11:59 15:00 Temp 36.0 Pulse 78 Resp 16 B/P (MAP) 130/106 (114) Pulse Ox 98 O2 Delivery Room Air O2 Flow Rate 2.00 Capillary Refill : Less Than 3 Seconds Height, Weight, BMI Height: '" Weight: lbs. oz. kg; 39.36 BMI Method: General Appearance: No Apparent Distress, Chronically ill, Obese Eyes: Right Eye Normal Inspection, Right Eye PERRL HEENT: PERRL/EOMI, Normal ENT Inspection, Pharynx Normal, Moist Mucous Membranes Neck: Full Range of Motion, Normal Inspection, Non Tender Respiratory: Chest Non Tender, Lungs Clear, No Accessory Muscle Use, No Respiratory Distress, Decreased Breath Sounds Cardiovascular: Regular Rate, Rhythm, No Gallop, No JVD, No Murmur, Normal Peripheral Pulses Gastrointestinal: Normal Bowel Sounds, No Organomegaly, No Pulsatile Mass, Non Tender, Soft Back: Normal Inspection, No CVA Tenderness, No Vertebral Tenderness Extremity: Normal Capillary Refill, Normal Inspection, Normal Range of Motion, Non Tender, No Calf Tenderness, Pedal Edema Neurologic/Psychiatric: Alert, Oriented x3, No Motor/Sensory Deficits, Normal Mood/Affect Skin: Normal Color, Warm/Dry Lymphatic: No Adenopathy Results Results/Procedures Labs Laboratory Tests 12/13/22 12:04 12/14/22 04:49 Patient resulted labs reviewed. Assessment/Plan Admission Diagnosis Assessment: Junctional tachycardia requiring Cardizem drip Acute congestive heart failure Suspected ischemic cardiomyopathy Hypertension Chronic kidney disease Hypoxia Obesity Suspected MARIAELENA has sleep study scheduled Plan: Cardizem drip Cardiology consult Echo Diuresis O2 Admission Status: Inpatient Order (span 2 midnights) Reason for Inpatient Admission: CHF Diagnosis/Problems Diagnosis/Problems (1) Junctional tachycardia Status: Acute (2) New onset atrial fibrillation Status: Acute (3) CHF (congestive heart failure) Status: Acute KENDAL VITALE DO Dec 13, 2022 17:57
[2022-12-13] MEDS: NS IV 1000 ML 1,000 ML IV SCH (18:50)
[2022-12-13] MEDS: KCL 10 MEQ TAB (MICRO K) PO SCH (18:53)
[2022-12-13] MEDS: DOCUSATE SODIUM 100 MG (COLACE) CAP PO SCH (20:17)
[2022-12-13] MEDS: SENNOSIDES 8.6 MG (SENOKOT) TAB PO SCH (20:17)
[2022-12-13] MEDS: FUROSEMIDE 40 MG/4 ML INJ (LASIX) IVP SCH (20:17)
[2022-12-13] MEDS: APIXABAN 5 MG (ELIQUIS) TABLET PO SCH (20:18)
[2022-12-14] MEDS: dilTIAZem DRIP PRE-MIX 125 ML IV SCH (00:08)
[2022-12-14] MEDS: NS IV 1000 ML 1,000 ML IV SCH (03:21)
[2022-12-14 05:18] LABS: BASOPHILS % (AUTO) 0 % (0-10); EOSINOPHILS % (AUTO) 1 % (0-10); HEMATOCRIT 38 % (40-54); HEMOGLOBIN 12.9 g/dL (13.3-17.7); LYMPHOCYTES # (AUTO) 0.9 10^3/uL (1.0-4.0); LYMPHOCYTES % (AUTO) 15 % (12-44); MEAN CORPUSCULAR HEMOGLOBIN 33 pg (25-34); MEAN CORPUSCULAR HGB CONC 34 g/dL (32-36); MEAN CORPUSCULAR VOLUME 99 fL (80-99); MEAN PLATELET VOLUME 11.9 fL (9.0-12.2); MONOCYTES % (AUTO) 16 % (0-12); NEUTROPHILS # (AUTO) 4.2 10^3/uL (1.8-7.8); NEUTROPHILS % (AUTO) 68 % (42-75); PLATELET COUNT 141 10^3/uL (130-400); WHITE BLOOD COUNT 6.3 10^3/uL (4.3-11.0)
[2022-12-14 05:49] LABS: ALBUMIN 3.9 GM/DL (3.2-4.5); BILIRUBIN,TOTAL 1.1 MG/DL (0.1-1.0); CALCIUM 8.8 MG/DL (8.5-10.1); CREATININE SERUM 1.23 MG/DL (0.60-1.30); MAGNESIUM 2.5 MG/DL (1.6-2.4); PHOSPHORUS 4.7 MG/DL (2.3-4.7); POTASSIUM 3.9 MMOL/L (3.6-5.0); TOTAL PROTEIN 6.3 GM/DL (6.4-8.2)
[2022-12-14] MEDS: POTASSIUM CL 10MEQ/50ML IVPB 50 ML IV SCH (06:16)
[2022-12-14] MEDS: MAGNESIUM 1 GM/100 ML IVPB 100 ML IV SCH (06:16)
[2022-12-14] MEDS: KCL 20 MEQ TAB (K-DUR) PO SCH (06:17)
--- NOTE | 2022-12-14 06:55 | Progress Note - Hospitalist ---
Subjective HPI/CC On Admission Date Seen by Provider: Dec 14, 2022 Time Seen by Provider: 11:00 Chief complaint: Shortness of breath HPI: This is a 72-year-old male clinic patient Dr. Godinez who has a past medical history of CAD previous stents who presents to the ICU following an ER work-up which revealed acute congestive heart failure with volume overload in need of IV diuresis and cardiology care. Patient is currently feeling about the same and has not urinated since Lasix 40 Mg given. Patient denies any pain. Subjective/Events-last exam Improved overall Creat decreased Output improved Appreciate Dr Solares help Cardizem drip SOHA Review of Systems General: Fatigue, Malaise Objective Exam Vital Signs Vital Signs Date Time Temp Pulse Resp B/P (MAP) Pulse Ox O2 Delivery O2 Flow Rate FiO2 12/14/22 13:00 75 24 110/71 (84) 93 Room Air 12/14/22 12:00 36.8 12/14/22 09:00 2.00 Capillary Refill : Less Than 3 Seconds General Appearance: No Apparent Distress, WD/WN, Chronically ill, Obese Respiratory: Lungs Clear, Normal Breath Sounds Cardiovascular: Regular Rate, Rhythm Neurologic/Psychiatric: Alert, Oriented x3, No Motor/Sensory Deficits, Normal Mood/Affect Results/Procedures Lab Laboratory Tests 12/14/22 04:49 Patient resulted labs reviewed. Assessment/Plan Assessment and Plan Assess & Plan/Chief Complaint Assessment: Junctional tachycardia requiring Cardizem drip Acute congestive heart failure Suspected ischemic cardiomyopathy Hypertension Chronic kidney disease Hypoxia Obesity Suspected MARIAELENA has sleep study scheduled Plan: Cardizem drip dc Cardiology consult Echo Diuresis O2 Diagnosis/Problems Diagnosis/Problems (1) Junctional tachycardia Status: Acute (2) New onset atrial fibrillation Status: Acute (3) CHF (congestive heart failure) Status: Acute GUME SPANN DO Dec 14, 2022 06:55
--- NOTE | 2022-12-14 07:58 | Diagnostic Imaging Report ---
Indication: Dyspnea with heart failure. Comparison: 12/13/2022. Discussion: Single portable upright view of the chest was obtained. Cardiomegaly is stable. Some improved aeration of the lung bases. No abby failure. No focal consolidation. No pleural fluid or pneumothorax. No osseous abnormality. Impression: 1. Improved aeration of the lung bases. No acute abnormality on today's exam. Dictated by: Dictated on workstation # [id number]
[2022-12-14] MEDS: DOCUSATE SODIUM 100 MG (COLACE) CAP PO SCH ×2 (08:42→20:16)
[2022-12-14] MEDS: ASPIRIN 81 MG CHEW (CHILDREN'S ASA) PO SCH (08:42)
[2022-12-14] MEDS: FUROSEMIDE 40 MG/4 ML INJ (LASIX) IVP SCH ×2 (08:42→17:31)
[2022-12-14] MEDS: KCL 10 MEQ TAB (MICRO K) PO SCH ×2 (08:42→17:31)
[2022-12-14] MEDS: APIXABAN 5 MG (ELIQUIS) TABLET PO SCH ×2 (08:43→20:16)
[2022-12-14] MEDS: SENNOSIDES 8.6 MG (SENOKOT) TAB PO SCH ×2 (08:43→20:16)
[2022-12-14] MEDS ORDERED: lisINopril 5 MG (PRINIVIL) TABLET PO SCH (09:00)
--- NOTE | 2022-12-14 10:19 | Tele-ICU Consult ---
History of Present Illness History of Present Illness Date Seen by Provider: Dec 14, 2022 Time Seen by Provider: 10:18 History of Present Illness (Tele-ICU Physician , consultation as per request of PCP Service provided via interactive audio and video telecommunications E-CARE system to a patient admitted to ICU bed in [facility]. Available chart/ vitals / labs / Images reviewed H&P is from ER notes Patient's information available about PMH, Shx, Fhx allergy reviewed inEMR. ROS as per chart and RN report Now in ICU, hemodynamically stable Video assessment done using teleICU camera, rest of exam as per RN Discussed with RN. Consultants: Hospital course: (12/13) 72yM admitted from the ED with increasing shortness breath and leg swelling. Junctional tachycardia and Afib, CHF A/P New onset a-fib with RVR -Cardizem drip -AC - epixaban - as per cards -ECHO 12-06-[address] Reynolds showed: LVEF 45-50%. Acute congestive heart failure - Suspected ischemic cardiomyopathy - A SPER CARDS Pulm HTN -PASP 45 mmHg Elevated liver enzymes - possibly secondary to hepato-biliary congestion d/t decompensated CHF Chronic kidney disease - cR STABLE Hypoxia - TO WEAN OFF O2 Elevated BMI, Obesity - approx 37 Suspected MARIAELENA -has sleep study scheduled Lines : PERIPH , (Central Line Necessity Reviewed) Hyman: VOID OG: Nutrition: PO Analgesia: Anxiety/ delirium VTE Prophylaxis: ELAQUIS Stress Ulcer Prophylaxis: Glycemic Control: Plans in collaboration with bedside consultants and IM MDs. Discussed with RN to reach out if any questions or concerns A total of 31 minutes of critical care time was devoted to this patient today, required to treat and/or prevent further deterioration of critical care condition ( as above ) . I am remotely monitoring this patient from another state. I am unable to do the bedside exam, and history/physical and pertinent information is taken from other notes in the computer and bedside staff. . Allergies and Home Medications Allergies Coded Allergies: codeine (Unverified Allergy, Unknown, 06/14/21) Home Medications Amlodipine Besylate 5 Mg Tablet, 5 MG PO DAILY, (Reported) Aspirin 81 Mg Tablet.dr, 81 MG PO DAILY, (Reported) Atorvastatin Calcium 40 Mg Tablet, 40 MG PO HS, (Reported) Citalopram Hydrobromide 20 Mg Tablet, 20 MG PO DAILY, (Reported) Furosemide 20 Mg Tablet, 20 MG PO DAILY, (Reported) Lisinopril 20 Mg Tablet, 20 MG PO DAILY, (Reported) LAST FILLED 06-20-2022 #90/90 DAY SUPPLY Metoprolol Tartrate 25 Mg Tablet, 25 MG PO BID, (Reported) Multivitamin 1 Each Tablet, 1 EACH PO DAILY, (Reported) Past Medical/Social/Family Hx Patient Social History Marrital Status: Employed/Student: retired Tobacco Use?: No Smoking Status: Former Smoker Smokeless Tobacco Frequency: Never a User Use of E-Cig and/or Vaping dev: No Substance use?: No Alcohol Use?: Yes Alcohol type: Hard Liquor Alcohol Frequency: Couple times a week Pt stated abuse/neglect: No Immunizations Up To Date Influenza Vaccine Up-to-Date: No; Not Current Current Status Advance Directives: Yes Advance Directive Location: Home Primary Language: Croatian Preferred Spoken Language: Croatian Is interpretation needed?: No Sensory deficits: Vision impairment Implanted or Applied Medical D: Orthopedic hardware Review of Systems Constitutional: see HPI Focused Exam Height, Weight, BMI Height: '" Weight: lbs. oz. kg; 39.36 BMI Method: Exam Exam Patient acknowledged, consented, and participated in this virtual visit which was conducted using real time audio/video Vital Signs Date Time Temp Pulse Resp B/P (MAP) Pulse Ox O2 Delivery O2 Flow Rate FiO2 12/14/22 10:00 81 22 160/105 (123) 93 Room Air 12/14/22 09:00 79 26 153/94 (113) 93 Nasal Cannula 2.00 12/14/22 08:10 2.00 12/14/22 08:00 82 23 143/92 (109) 95 Nasal Cannula 2.00 12/14/22 07:00 78 23 148/91 (110) 95 Nasal Cannula 2.00 12/14/22 07:00 79 12/14/22 06:00 79 24 138/97 (111) 96 Nasal Cannula 2.00 12/14/22 05:00 79 22 146/90 (108) 96 Nasal Cannula 2.00 12/14/22 04:04 2.00 12/14/22 04:00 76 22 142/92 (109) 96 Nasal Cannula 2.00 12/14/22 03:00 80 22 139/89 (106) 96 Nasal Cannula 2.00 12/14/22 02:00 75 19 124/99 (107) 95 Nasal Cannula 2.00 12/14/22 01:00 74 18 118/84 (95) 95 Nasal Cannula 2.00 12/14/22 01:00 136 12/14/22 00:08 77 144/98 12/14/22 00:00 78 22 144/98 (113) 96 Nasal Cannula 2.00 12/13/22 23:15 2.00 12/13/22 23:00 76 25 126/97 (107) 95 Nasal Cannula 2.00 12/13/22 22:58 95 1.00 12/13/22 22:00 75 25 120/89 (99) 96 Nasal Cannula 2.00 12/13/22 21:00 79 27 132/91 (105) 96 Nasal Cannula 2.00 12/13/22 20:00 70 26 125/83 (97) 95 Nasal Cannula 2.00 12/13/22 19:45 2.00 12/13/22 19:40 36.3 12/13/22 19:00 80 12/13/22 19:00 75 25 123/99 (107) 95 Nasal Cannula 2.00 12/13/22 18:00 121 24 142/102 (115) 97 Nasal Cannula 2.00 12/13/22 17:00 75 20 113/86 (95) 94 Nasal Cannula 2.00 12/13/22 16:00 74 24 111/84 (93) 93 Nasal Cannula 2.00 12/13/22 15:39 Nasal Cannula 2.00 12/13/22 15:15 36.0 131 94 12/13/22 15:00 97 Nasal Cannula 2.00 12/13/22 14:30 131 12/13/22 14:30 72 16 114/74 (87) 94 Room Air 12/13/22 12:29 144 131/100 12/13/22 12:28 144 131/100 12/13/22 11:59 97 Room Air 12/13/22 11:59 36.0 78 16 130/106 (114) 98 I & O 12/14/22 07:00 Intake Total 1705 ml Output Total 1000 ml Balance 705 ml Height & Weight Height: '" Weight: lbs. oz. kg; 39.36 BMI Method: General Appearance: No Apparent Distress, WD/WN, Chronically ill, Obese HEENT: PERRL/EOMI, Normal ENT Inspection, Pharynx Normal, Moist Mucous Membranes Neck: Full Range of Motion, Normal Inspection, Non Tender Respiratory: Chest Non Tender, Lungs Clear, No Accessory Muscle Use, No Respiratory Distress, Decreased Breath Sounds Cardiovascular: Regular Rate, Rhythm, No Gallop, No JVD, No Murmur, Normal Peripheral Pulses Capillary Refill: Less Than 3 Seconds Extremity: Normal Capillary Refill, Normal Inspection, Normal Range of Motion, Non Tender, No Calf Tenderness, Pedal Edema Neurologic/Psychiatric: Alert, Oriented x3, No Motor/Sensory Deficits, Normal Mood/Affect Skin: Normal Color, Warm/Dry Lymphatic: No Adenopathy Results Lab Laboratory Tests 12/13/22 12:04 12/14/22 04:49 Assessment/Plan Assessment/Plan 1 ZHANG YATES MD Dec 14, 2022 10:19
--- NOTE | 2022-12-14 11:18 | Progress Note - Cardiology ---
Cardiology SOAP Progress Note Subjective: Gen weakness and malaise Shortness of breath with activity No cp or palp or syncope No focal weakness Swelling better No n/v/d Objective: I&O/Vital Signs 12/13/22 12/14/22 12/14/22 12/14/22 23:15 00:00 00:08 01:00 Pulse 78 77 136 Resp 22 B/P (MAP) 144/98 (113) 144/98 Pulse Ox 96 O2 Delivery Nasal Cannula O2 Flow Rate 2.00 2.00 12/14/22 12/14/22 12/14/22 12/14/22 01:00 02:00 03:00 04:00 Pulse 74 75 80 76 Resp 18 22 B/P (MAP) 118/84 (95) 124/99 (107) 139/89 (106) 142/92 (109) Pulse Ox 95 95 96 96 O2 Delivery Nasal Cannula Nasal Cannula Nasal Cannula Nasal Cannula O2 Flow Rate 2.00 2.00 2.00 2.00 12/14/22 12/14/22 12/14/22 12/14/22 04:04 05:00 06:00 07:00 Pulse 79 79 79 Resp 24 B/P (MAP) 146/90 (108) 138/97 (111) Pulse Ox 96 96 O2 Delivery Nasal Cannula Nasal Cannula O2 Flow Rate 2.00 2.00 2.00 12/14/22 12/14/22 12/14/22 12/14/22 07:00 08:00 08:10 09:00 Pulse 78 82 79 Resp 26 B/P (MAP) 148/91 (110) 143/92 (109) 153/94 (113) Pulse Ox 95 95 93 O2 Delivery Nasal Cannula Nasal Cannula Nasal Cannula O2 Flow Rate 2.00 2.00 2.00 2.00 12/14/22 12/14/22 10:00 10:36 Pulse 81 Resp 22 B/P (MAP) 160/105 (123) Pulse Ox 93 93 O2 Delivery Room Air Room Air 12/14/22 00:00 Intake Total 240 ml Output Total 375 ml Balance -135 ml Constitutional: AAO x 3, well-developed, well-nourished Respiratory: No accessory muscle use, No respiratory distress; chest expansion is symmetric, chest is bilaterally symmetric, other (diminished lower lobes bilat; dyspneic with conversation) Cardiovascular: irregularly irregular; No JVD; tachycardia, S1 and S2 Gastrointestional: No tender; soft, round, audible bowel sounds Extremities: other (bilat mod pitting LE swelling) Neurologic/Psychiatric: other (moves all limbs equally) Skin: No rash on exposed areas, No ulcerations on exposed areas Results/Procedures: Labs Laboratory Tests 12/13/22 12:04: White Blood Count 6.4, Red Blood Count 4.37, Hemoglobin 14.7, Hematocrit 44, Mean Corpuscular Volume 100H, Mean Corpuscular Hemoglobin 34, Mean Corpuscular Hemoglobin Concent 34, Red Cell Distribution Width 13.7, Platelet Count 160, Mean Platelet Volume 11.4, Immature Granulocyte % (Auto) 1, Neutrophils (%) (A uto) 59, Lymphocytes (%) (Auto) 26, Monocytes (%) (Auto) 14H, Eosinophils (%) ( Auto) 0, Basophils (%) (Auto) 0, Neutrophils # (Auto) 3.8, Lymphocytes # (Auto) 1.7, Monocytes # (Auto) 0.9, Eosinophils # (Auto) 0.0, Basophils # (Auto) 0.0, Immature Granulocyte # (Auto) 0.1, Prothrombin Time 16.6H, INR Comment 1.3, Activated Partial Thromboplast Time 30, Sodium Level 134L, Potassium Level 3.7, Chloride Level 99, Carbon Dioxide Level 20L, Anion Gap 15H, Blood Urea Nitrogen 18, Creatinine 1.44H, Estimat Glomerular Filtration Rate 52, BUN/Creatinine Ratio 13, Glucose Level 211H, Calcium Level 9.5, Corrected Calcium 9.3, Magnesium Level 2.0, Total Bilirubin 1.2H, Aspartate Amino Transf (AST/SGOT) 108H, Alanine Aminotransferase (ALT/SGPT) 169H, Alkaline Phosphatase 79, Myoglob in 106.3H, Troponin I 0.050H, B-Type Natriuretic Peptide 940.0H, Total Protein 6.8, Albumin 4.3 12/14/22 04:49: White Blood Count 6.3, Red Blood Count 3.88L, Hemoglobin 12.9L, Hematocrit 38L, Mean Corpuscular Volume 99, Mean Corpuscular Hemoglobin 33, Mean Corpuscular Hemoglobin Concent 34, Red Cell Distribution Width 13.5, Platelet Count 141, Mean Platelet Volume 11.9, Immature Granulocyte % (Auto) 1, Neutrophils (%) (Auto) 68, Lymphocytes (%) (Auto) 15, Monocytes (%) (Auto) 16H, Eosinophils (%) (Auto) 1, Basophils (%) (Auto) 0, Neutrophils # (Auto) 4.2, Lymphocytes # (Auto) 0.9L, Monocytes # (Auto) 1.0, Eosinophils # (Auto) 0.0, Basophils # (Auto) 0.0, Immature Granulocyte # (Auto) 0.1, Sodium Level 134L, Potassium Level 3.9, Chloride Level 101, Carbon Dioxide Level 21, Anion Gap 12, Blood Urea Nitrogen 18, Creatinine 1.23, Estimat Glomerular Filtration Rate 62, BUN/Creatinine Ratio 15, Glucose Level 145H, Calcium Level 8.8, Corrected Calcium 8.9, Magnesium Level 2.5H, Total Bilirubin 1.1H, Aspartate Amino Transf (AST/SGOT) 657H, Alanine Aminotransferase (ALT/SGPT) 710#H, Alkaline Phosphatase 72, Total Protein 6.3L, Albumin 3.9, Phosphorus Level 4.7, Triglycerides Level 56, Cholesterol Level 83, LDL Cholesterol Direct 48, VLDL Cholesterol 11, HDL Cholesterol 26L Laboratory Tests 12/13/22 12:04 12/14/22 04:49 A/P: Assessment: PAF with intermittent RVR - first dx on ECG of 12-13-22 in the ED Acute on chronic diastolic CHF: - Echo 05/08/[address] Reynolds: Normal left ventricular chamber size with mild concentric left ventricular hypertrophy. Normal left ventricular systolic function with an estimated ejection fraction of 60-65%. The left ventricular diastolic function is indeterminate.,The left atrium is mild to moderately dilated.The estimated pulmonary artery systolic pressure is 35 mmHg. - Echocardiogram of 12-06-[address] Reynolds showed: LVEF 45-50%. Hypokinesis of the apical septal and apical myocardium. LA is mod dilatd. RA is mildly dilated. Mild AoV sclerosis with mild AoR. Mod MR. PASP 45 mmHg CAD - Cardiac cath (10/08/2013) at [facility] in [place], [place] by Dr. Beebe: Mild obstruction in the mid segment of the left anterior descending coronary artery and origin of the first diagonal branch of the LAD. Normal right coronary artery and circumflex artery. Normal left ventricular angiogram. - Treadmill nuclear graeme (06/14/2021) by Dr. Reynolds: suboptimal but w/o evidence of ischemia or infarction and with LVEF 71% HTN HLD Renal insufficiency, probably acute, probably ATN due to low CO and intermittent hypotension Elevated liver enzymes, worsening - possibly secondary to hepato-biliary congestion d/t decompensated CHF Elevated BMI - approx 37 Suspected sleep apnea Plan: * d/c iv fluids * continue furosemide * change dilt to oral (long-acting) * continue apixaban for stroke prophylaxis * increase bb * d/c lisinopril * strart Entresto * increase ambulation * monitor labs * I spoke with him and answered his CV-related questions RETA VARELA MD FACP FACC CCDS Dec 14, 2022 11:18
[2022-12-15 04:37] LABS: MEAN CORPUSCULAR VOLUME 99 fL (80-99); MONOCYTES # (AUTO) 0.8 10^3/uL (0.0-1.0)
[2022-12-15 04:39] LABS: BASOPHILS % (AUTO) 0 % (0-10); EOSINOPHILS # (AUTO) 0.1 10^3/uL (0.0-0.3); EOSINOPHILS % (AUTO) 1 % (0-10); HEMATOCRIT 39 % (40-54); LYMPHOCYTES # (AUTO) 1.1 10^3/uL (1.0-4.0); LYMPHOCYTES % (AUTO) 22 % (12-44); MEAN CORPUSCULAR HEMOGLOBIN 33 pg (25-34); MEAN CORPUSCULAR HGB CONC 33 g/dL (32-36); MEAN PLATELET VOLUME 11.3 fL (9.0-12.2); MONOCYTES % (AUTO) 16 % (0-12); NEUTROPHILS % (AUTO) 60 % (42-75); PLATELET COUNT 115 10^3/uL (130-400)
[2022-12-15 04:59] LABS: ALBUMIN 3.8 GM/DL (3.2-4.5); CALCIUM 8.7 MG/DL (8.5-10.1); CREATININE SERUM 1.05 MG/DL (0.60-1.30); PHOSPHORUS 3.4 MG/DL (2.3-4.7); POTASSIUM 3.3 MMOL/L (3.6-5.0); TOTAL PROTEIN 6.1 GM/DL (6.4-8.2)
[2022-12-15] MEDS: POTASSIUM CL 10MEQ/50ML IVPB 50 ML IV SCH (05:09)
[2022-12-15] MEDS: MAGNESIUM 1 GM/100 ML IVPB 100 ML IV SCH (05:09)
[2022-12-15] MEDS: KCL 20 MEQ TAB (K-DUR) PO SCH ×5 (05:24→12:25)
--- NOTE | 2022-12-15 08:04 | Progress Note - Hospitalist ---
Subjective HPI/CC On Admission Date Seen by Provider: Dec 15, 2022 Time Seen by Provider: 11:00 Chief complaint: Shortness of breath HPI: This is a 72-year-old male clinic patient Dr. Godinez who has a past medical history of CAD previous stents who presents to the ICU following an ER work-up which revealed acute congestive heart failure with volume overload in need of IV diuresis and cardiology care. Patient is currently feeling about the same and has not urinated since Lasix 40 Mg given. Patient denies any pain. Subjective/Events-last exam Patient doing really well No shortness of breath Overnight oxygen study will be initiated Sleep study as already scheduled by PCP Labs reviewed Review of Systems General: Fatigue, Malaise Objective Exam Vital Signs Vital Signs Date Time Temp Pulse Resp B/P (MAP) Pulse Ox O2 Delivery O2 Flow Rate FiO2 12/15/22 12:02 36.5 66 18 106/73 (84) 96 Room Air 12/14/22 09:00 2.00 Capillary Refill : Less Than 3 Seconds General Appearance: No Apparent Distress, WD/WN, Chronically ill, Obese Respiratory: Lungs Clear, Normal Breath Sounds Cardiovascular: Regular Rate, Rhythm Neurologic/Psychiatric: Alert, Oriented x3, No Motor/Sensory Deficits, Normal Mood/Affect Results/Procedures Lab Laboratory Tests 12/15/22 04:25 Patient resulted labs reviewed. Assessment/Plan Assessment and Plan Assess & Plan/Chief Complaint Assessment: Junctional tachycardia requiring Cardizem drip now normal sinus rhythm Acute congestive heart failure Suspected ischemic cardiomyopathy Hypertension Chronic kidney disease Hypoxia Obesity Suspected MARIAELENA has sleep study scheduled Plan: Cardizem drip dc Cardiology consult Echo Diuresis O2 Moved to fourth floor Diagnosis/Problems Diagnosis/Problems (1) Junctional tachycardia Status: Acute (2) New onset atrial fibrillation Status: Acute (3) CHF (congestive heart failure) Status: Acute GUME SPANN DO Dec 15, 2022 08:04
[2022-12-15] MEDS: FUROSEMIDE 40 MG/4 ML INJ (LASIX) IVP SCH ×2 (08:18→17:40)
[2022-12-15] MEDS: SENNOSIDES 8.6 MG (SENOKOT) TAB PO SCH ×2 (08:18→20:40)
[2022-12-15] MEDS: ASPIRIN 81 MG CHEW (CHILDREN'S ASA) PO SCH (08:18)
[2022-12-15] MEDS: KCL 10 MEQ TAB (MICRO K) PO SCH ×2 (08:18→17:40)
[2022-12-15] MEDS: APIXABAN 5 MG (ELIQUIS) TABLET PO SCH ×2 (08:18→20:40)
--- NOTE | 2022-12-15 08:19 | Diagnostic Imaging Report ---
INDICATION: Congestive heart failure. Comparison is made with prior examination of 12/14/2022. FINDINGS: There is cardiomegaly. There is some mild venous congestion. There is no pleural effusion or pneumothorax. The mediastinum is unremarkable. IMPRESSION: Cardiomegaly and mild central pulmonary venous congestion. Dictated by: Dictated on workstation # [id number]
[2022-12-15] MEDS: DOCUSATE SODIUM 100 MG (COLACE) CAP PO SCH ×2 (08:54→20:40)
--- NOTE | 2022-12-15 14:34 | Progress Note - Cardiology ---
Cardiology SOAP Progress Note Subjective: Gen weakness and malaise No n/v/d No focal weakness Shortness of breath is improving No cp or palp or syncope Mild swelling of lower legs Objective: I&O/Vital Signs 12/15/22 12/15/22 12/15/22 12/15/22 03:00 04:00 05:00 06:00 Pulse 68 66 68 71 Resp 20 21 26 B/P (MAP) 115/79 (91) 124/76 (92) 113/70 (84) 123/80 (94) Pulse Ox 79 93 92 97 O2 Delivery Room Air Room Air Room Air Room Air 12/15/22 12/15/22 12/15/22 12/15/22 07:00 07:00 08:00 09:00 Pulse 64 59 73 73 Resp B/P (MAP) 115/89 (98) 115/104 (108) 121/77 (92) Pulse Ox 97 97 92 O2 Delivery Room Air Room Air Room Air 12/15/22 12/15/22 12/15/22 10:00 12:02 13:00 Temp 36.5 Pulse 71 66 70 Resp 16 18 B/P (MAP) 112/71 (85) 106/73 (84) Pulse Ox 96 O2 Delivery Room Air Room Air 12/15/22 00:00 Intake Total 950 ml Output Total 2075 ml Balance -1125 ml Constitutional: AAO x 3, well-developed, well-nourished Respiratory: No accessory muscle use, No respiratory distress; chest expansion is symmetric, chest is bilaterally symmetric, other (diminished lower lobes bilat; dyspneic with conversation) Cardiovascular: irregularly irregular; No JVD; tachycardia, S1 and S2 Gastrointestional: No tender; soft, round, audible bowel sounds Extremities: other (bilat mod pitting LE swelling) Neurologic/Psychiatric: other (moves all limbs equally) Skin: No rash on exposed areas, No ulcerations on exposed areas Results/Procedures: Labs Laboratory Tests 12/15/22 04:25: White Blood Count 5.0, Red Blood Count 3.93L, Hemoglobin 13.0L, Hematocrit 39L, Mean Corpuscular Volume 99, Mean Corpuscular Hemoglobin 33, Mean Corpuscular Hemoglobin Concent 33, Red Cell Distribution Width 13.6, Platelet Count 115L, Mean Platelet Volume 11.3, Immature Granulocyte % (Auto) 1, Neutrophils (%) (Auto) 60, Lymphocytes (%) (Auto) 22, Monocytes (%) (Auto) 16H, Eosinophils (%) (Auto) 1, Basophils (%) (Auto) 0, Neutrophils # (Auto) 3.0, Lymphocytes # (Auto) 1.1, Monocytes # (Auto) 0.8, Eosinophils # (Auto) 0.1, Basophils # (Auto) 0.0, Immature Granulocyte # (Auto) 0.0, Percent Immature Platelet Fraction 6.1, Sodium Level 138, Potassium Level 3.3L, Chloride Level 101, Carbon Dioxide Level 24, Anion Gap 13, Blood Urea Nitrogen 17, Creatinine 1.05, Estimat Glomerular Filtration Rate 75, BUN/Creatinine Ratio 16, Glucose Level 110H, Calcium Level 8.7, Corrected Calcium 8.9, Phosphorus Level 3.4, Magnesium Level 2.0, Total Bilirubin 1.0, Aspartate Amino Transf (AST/SGOT) 213H, Alanine Aminotransferase (ALT/SGPT) 472H, Alkaline Phosphatase 74, Total Protein 6.1L, Albumin 3.8 Microbiology 12/13/22 MRSA Screen - Final, Complete MRSA not isolated Laboratory Tests 12/14/22 04:49 12/15/22 04:25 A/P: Assessment: PAF with intermittent RVR - first dx on ECG of 12-13-22 in the ED Acute on chronic diastolic CHF: - Echo 05/08/[address] Reynolds: Normal left ventricular chamber size with mild concentric left ventricular hypertrophy. Normal left ventricular systolic function with an estimated ejection fraction of 60-65%. The left ventricular diastolic function is indeterminate.,The left atrium is mild to moderately dilated.The estimated pulmonary artery systolic pressure is 35 mmHg. - Echocardiogram of 12-06-[address] Reynolds showed: LVEF 45-50%. Hypokinesis of the apical septal and apical myocardium. LA is mod dilatd. RA is mildly dilated. Mild AoV sclerosis with mild AoR. Mod MR. PASP 45 mmHg CAD - Cardiac cath (10/08/2013) at [facility] in [place], [place] by Dr. Beebe: Mild obstruction in the mid segment of the left anterior descending coronary artery and origin of the first diagonal branch of the LAD. Normal right coronary artery and circumflex artery. Normal left ventricular angiogram. - Treadmill nuclear graeme (06/14/2021) by Dr. Reynolds: suboptimal but w/o evidence of ischemia or infarction and with LVEF 71% HTN HLD Renal insufficiency, probably acute, probably ATN due to low CO and intermittent hypotension Elevated liver enzymes, worsening - possibly secondary to hepato-biliary congestion d/t decompensated CHF Elevated BMI - approx 37 Suspected sleep apnea Plan: * Continue current regimen * Replenish K * Monitor labs * Transfer to floor with tele RETA VARELA MD FACP FAC CCDS Dec 15, 2022 14:34
[2022-12-15 15:44] VITALS: BP 115/74
[2022-12-15 19:38] VITALS: BP 132/70
[2022-12-15 23:38] VITALS: BP 134/72
[2022-12-16 04:04] VITALS: BP 136/74
[2022-12-16 06:12] LABS: MONOCYTES % (AUTO) 18 % (0-12)
[2022-12-16 06:14] LABS: BASOPHILS % (AUTO) 0 % (0-10); EOSINOPHILS % (AUTO) 1 % (0-10); HEMATOCRIT 40 % (40-54); HEMOGLOBIN 13.7 g/dL (13.3-17.7); LYMPHOCYTES # (AUTO) 1.4 10^3/uL (1.0-4.0); LYMPHOCYTES % (AUTO) 25 % (12-44); MEAN CORPUSCULAR HEMOGLOBIN 34 pg (25-34); MEAN CORPUSCULAR HGB CONC 34 g/dL (32-36); MEAN CORPUSCULAR VOLUME 99 fL (80-99); MEAN PLATELET VOLUME 11.7 fL (9.0-12.2); NEUTROPHILS # (AUTO) 3.2 10^3/uL (1.8-7.8); NEUTROPHILS % (AUTO) 55 % (42-75); PLATELET COUNT 123 10^3/uL (130-400); WHITE BLOOD COUNT 5.7 10^3/uL (4.3-11.0)
[2022-12-16 06:24] LABS: SMEAR SCAN COMMENT YES
[2022-12-16 06:31] LABS: ALBUMIN 3.8 GM/DL (3.2-4.5); BILIRUBIN,TOTAL 0.9 MG/DL (0.1-1.0); CALCIUM 8.9 MG/DL (8.5-10.1); CREATININE SERUM 1.05 MG/DL (0.60-1.30); MAGNESIUM 1.9 MG/DL (1.6-2.4); POTASSIUM 3.3 MMOL/L (3.6-5.0); TOTAL PROTEIN 6.1 GM/DL (6.4-8.2)
[2022-12-16] MEDS: FUROSEMIDE 40 MG/4 ML INJ (LASIX) IVP SCH (06:40)
[2022-12-16] MEDS: MULTIVIT W/MINERALS TAB (THERAGRAN M) PO SCH (06:40)
[2022-12-16 07:30] VITALS: BP 155/81
[2022-12-16] MEDS ORDERED: KCL 20 MEQ TAB (K-DUR) PO NR ×2 (07:30→09:30)
[2022-12-16] MEDS: ASPIRIN E.C. 81 MG (ECOTRIN) TAB PO SCH (08:33)
[2022-12-16] MEDS: APIXABAN 5 MG (ELIQUIS) TABLET PO SCH ×2 (08:33→19:59)
[2022-12-16] MEDS: KCL 10 MEQ TAB (MICRO K) PO SCH ×2 (08:33→18:04)
[2022-12-16] MEDS: SENNOSIDES 8.6 MG (SENOKOT) TAB PO SCH ×2 (09:01→20:01)
[2022-12-16] MEDS: DOCUSATE SODIUM 100 MG (COLACE) CAP PO SCH ×2 (09:01→20:00)
--- NOTE | 2022-12-16 09:03 | Progress Note - Cardiology ---
Cardiology SOAP Progress Note Subjective: Sitting up in recliner at the bedside States he feels much better than before No c/o SOB, palpitations, CP Objective: I&O/Vital Signs 12/16/22 12/16/22 12/16/22 12/16/22 20:06 20:13 20:20 23:24 Temp 36.9 Pulse 135 75 98 Resp 18 B/P (MAP) 119/73 (88) Pulse Ox 93 O2 Delivery Room Air Room Air 12/17/22 12/17/22 12/17/22 01:00 03:59 05:11 Temp 36.4 35.4 Pulse 75 69 69 Resp 18 B/P (MAP) 117/82 (94) Pulse Ox 92 92 O2 Delivery Room Air FiO2 21 12/17/22 00:00 Intake Total 2170 ml Balance 2170 ml Constitutional: AAO x 3, well-developed, well-nourished Respiratory: No accessory muscle use, No respiratory distress; chest expansion is symmetric, chest is bilaterally symmetric, lungs clear to auscultation Cardiovascular: regular rate-rhythm; No JVD; S1 and S2 Gastrointestional: No tender; soft, round, audible bowel sounds Extremities: other (bilat mild to mod LE swelling) Neurologic/Psychiatric: other (moves all limbs equally) Skin: No rash on exposed areas, No ulcerations on exposed areas Results/Procedures: Labs Laboratory Tests 12/17/22 05:00: White Blood Count 4.9, Red Blood Count 3.98L, Hemoglobin 13.3, Hematocrit 40, Mean Corpuscular Volume 99, Mean Corpuscular Hemoglobin 33, Mean Corpuscular Hemoglobin Concent 34, Red Cell Distribution Width 13.3, Platelet Count 127L, Mean Platelet Volume 11.3, Immature Granulocyte % (Auto) 0, Neutrophils (%) (Auto) 51, Lymphocytes (%) (Auto) 30, Monocytes (%) (Auto) 19H, Eosinophils (%) (Auto) 0, Basophils (%) (Auto) 0, Neutrophils # (Auto) 2.5, Lymphocytes # (Auto) 1.5, Monocytes # (Auto) 0.9, Eosinophils # (Auto) 0.0, Basophils # (Auto) 0.0, Immature Granulocyte # (Auto) 0.0, Neutrophils % (Manual) 52, Lymphocytes % (Manual) 32, Monocytes % (Manual) 15, Atypical Lymphocytes 1, Percent Immature Platelet Fraction 6.2, Blood Morphology Comment NORMAL, Sodium Level 141, Potassium Level 3.6, Chloride Level 103, Carbon Dioxide Level 26, Anion Gap 12, Blood Urea Nitrogen 15, Creatinine 0.92, Estimat Glomerular Filtration Rate 88, BUN/Creatinine Ratio 16, Glucose Level 132H, Calcium Level 8.9, Corrected Calcium 9.3, Magnesium Level 1.9, Total Bilirubin 0.7, Aspartate Amino Transf (AST/SGOT) 66H, Alanine Aminotransferase (ALT/SGPT) 252H, Alkaline Phosphatase 79, Total Protein 5.7L, Albumin 3.5 Microbiology 12/13/22 MRSA Screen - Final, Complete MRSA not isolated A/P: Assessment: PAF with intermittent RVR - currently SR with controlled rate - first dx on ECG of 12-13-22 in the ED - OAC with Eliquis Acute on chronic diastolic CHF: - Echo 05/08/[address] Reynolds: Normal left ventricular chamber size with mild concentric left ventricular hypertrophy. Normal left ventricular systolic function with an estimated ejection fraction of 60-65%. The left ventricular diastolic function is indeterminate.,The left atrium is mild to moderately dilated.The estimated pulmonary artery systolic pressure is 35 mmHg. - Echocardiogram of 12-06-[address] Reynolds showed: LVEF 45-50%. Hypokinesis of the apical septal and apical myocardium. LA is mod dilatd. RA is mildly dilated. Mild AoV sclerosis with mild AoR. Mod MR. PASP 45 mmHg CAD - Cardiac cath (10/08/2013) at [facility] in [place], [place] by Dr. Beebe: Mild obstruction in the mid segment of the left anterior descending coronary artery and origin of the first diagonal branch of the LAD. Normal right coronary artery and circumflex artery. Normal left ventricular angiogram. - Treadmill nuclear graeme (06/14/2021) by Dr. Reynolds: suboptimal but w/o evidence of ischemia or infarction and with LVEF 71% HTN HLD Renal insufficiency, probably acute, probably ATN due to low CO and intermittent hypotension Elevated liver enzymes, worsening - possibly secondary to hepato-biliary congestion d/t decompensated CHF Elevated BMI - approx 37 Suspected sleep apnea Plan: * Change Lasix to oral * Continue other medications * Replenish K * Monitor labs PALMER SUTTON Dec 16, 2022 09:03
[2022-12-16 11:15] VITALS: BP 119/60
[2022-12-16 15:56] VITALS: BP 116/70
--- NOTE | 2022-12-16 17:02 | Progress Note - Cardiology ---
Cardiology SOAP Progress Note Subjective: Shortness of breath is better No cp or palp or syncope No n/v/d Gen weakness and malaise present No focal weakness Objective: I&O/Vital Signs 12/16/22 12/16/22 12/16/22 12/16/22 07:02 07:30 08:00 11:15 Temp 36.4 36.5 Pulse 72 71 72 Resp 18 18 B/P (MAP) 155/81 (105) 119/60 (79) Pulse Ox 96 96 93 O2 Delivery Room Air Room Air Room Air 12/16/22 12/16/22 12/16/22 12/16/22 12:19 12:24 12:34 15:56 Temp 36.3 Pulse 133 129 71 71 Resp 20 B/P (MAP) 116/70 (85) Pulse Ox 96 O2 Delivery Room Air 12/16/22 00:00 Intake Total 1540 ml Balance 1540 ml Constitutional: AAO x 3, well-developed, well-nourished Respiratory: No accessory muscle use, No respiratory distress; chest expansion is symmetric, chest is bilaterally symmetric, lungs clear to auscultation Cardiovascular: regular rate-rhythm; No JVD; S1 and S2 Gastrointestional: No tender; soft, round, audible bowel sounds Extremities: other (bilat mild to mod LE swelling) Neurologic/Psychiatric: other (moves all limbs equally) Skin: No rash on exposed areas, No ulcerations on exposed areas Results/Procedures: Labs Laboratory Tests 12/16/22 05:09: White Blood Count 5.7, Red Blood Count 4.07L, Hemoglobin 13.7, Hematocrit 40, Mean Corpuscular Volume 99, Mean Corpuscular Hemoglobin 34, Mean Corpuscular Hemoglobin Concent 34, Red Cell Distribution Width 13.3, Platelet Count 123L, Mean Platelet Volume 11.7, Immature Granulocyte % (Auto) 1, Neutrophils (%) (Auto) 55, Lymphocytes (%) (Auto) 25, Monocytes (%) (Auto) 18H, Eosinophils (%) (Auto) 1, Basophils (%) (Auto) 0, Neutrophils # (Auto) 3.2, Lymphocytes # (Auto) 1.4, Monocytes # (Auto) 1.0, Eosinophils # (Auto) 0.0, Basophils # (Auto) 0.0, Immature Granulocyte # (Auto) 0.1, Percent Immature Platelet Fraction 7.2, Sodium Level 139, Potassium Level 3.3L, Chloride Level 101, Carbon Dioxide Level 26, Anion Gap 12, Blood Urea Nitrogen 18, Creatinine 1.05, Estimat Glomerular Filtration Rate 75, BUN/Creatinine Ratio 17, Glucose Level 107H, Calcium Level 8.9, Corrected Calcium 9.1, Magnesium Level 1.9, Total Bilirubin 0.9, Aspartate Amino Transf (AST/SGOT) 115H, Alanine Aminotransferase (ALT/SGPT) 355H, Alkaline Phosphatase 80, Total Protein 6.1L, Albumin 3.8, Smear Scan YES Microbiology 12/13/22 MRSA Screen - Final, Complete MRSA not isolated Laboratory Tests 12/15/22 04:25 12/16/22 05:09 A/P: Assessment: PAF with intermittent RVR - currently SR with controlled rate - first dx on ECG of 12-13-22 in the ED - OAC with Eliquis Acute on chronic diastolic CHF: - Echo 05/08/[address] Reynolds: Normal left ventricular chamber size with mild concentric left ventricular hypertrophy. Normal left ventricular systolic function with an estimated ejection fraction of 60-65%. The left ventricular diastolic function is indeterminate.,The left atrium is mild to moderately dilated.The estimated pulmonary artery systolic pressure is 35 mmHg. - Echocardiogram of 12-06-[address] Reynolds showed: LVEF 45-50%. Hypokinesis of the apical septal and apical myocardium. LA is mod dilatd. RA is mildly dilated. Mild AoV sclerosis with mild AoR. Mod MR. PASP 45 mmHg CAD - Cardiac cath (10/08/2013) at [facility] in [place], [place] by Dr. Beebe: Mild obstruction in the mid segment of the left anterior descending coronary artery and origin of the first diagonal branch of the LAD. Normal right coronary artery and circumflex artery. Normal left ventricular angiogram. - Treadmill nuclear graeme (06/14/2021) by Dr. Reynolds: suboptimal but w/o evidence of ischemia or infarction and with LVEF 71% HTN HLD Renal insufficiency, probably acute, probably ATN due to low CO and intermittent hypotension Elevated liver enzymes, worsening - possibly secondary to hepato-biliary congestion d/t decompensated CHF Elevated BMI - approx 37 Suspected sleep apnea Plan: * Change Lasix to oral * Continue other medications * Replenish K * Monitor labs * I discussed the rationale, procedure, risks, benefits, potential complications, and alternatives of card cath and possible ad hoc cor intervention with him and answered questions. He understands and provides informed consent RETA VARELA MD FACP FAC CCDS Dec 16, 2022 17:02
--- NOTE | 2022-12-16 17:44 | Progress Note - Hospitalist ---
ANDIE HUANG 12/16/22 1744: Subjective HPI/CC On Admission Chief complaint: Shortness of breath HPI: This is a 72-year-old male clinic patient Dr. Godinez who has a past medical history of CAD previous stents who presents to the ICU following an ER work-up which revealed acute congestive heart failure with volume overload in need of IV diuresis and cardiology care. Patient is currently feeling about the same and has not urinated since Lasix 40 Mg given. Patient denies any pain. Subjective/Events-last exam 72 yo male who presented to the ED on 12/15 for lower extremity edema and dyspnea SOB of 6 days duration. Per ED notes, the patient had an an appointment with his PCP 1 week prior wherein an echocardiogram showed abnormal results and 20mg of Lasix was started. ED workup showed mildly elevated troponin (0.050), elevated BNP (940), EKG findings suggestive of a potential junctional rhythm then atrial fibrillation, elevated LFTs, and hypokalemia; Eliquis 5 mg PO, Lasix 40 mg IV bid, and 20 mEq KCl PO bid, and Cardizem were started and the patient was admitted to the ICU. Today, he states both his dyspnea and swelling have greatly improved. He notes has has been urinating more frequently since yesterday (6x since 7:00am), which is attributes to laxis. He denies chest pain or paliptations. Objective Exam Vital Signs Vital Signs Date Time Temp Pulse Resp B/P (MAP) Pulse Ox O2 Delivery O2 Flow Rate FiO2 12/16/22 15:56 36.3 71 20 116/70 (85) 96 Room Air 12/14/22 09:00 2.00 Capillary Refill : Less Than 3 Seconds General Appearance: No Apparent Distress Respiratory: Lungs Clear, Normal Breath Sounds, No Accessory Muscle Use, No Respiratory Distress Cardiovascular: No Edema Gastrointestinal: Normal Bowel Sounds, Non Tender Neurologic/Psychiatric: Alert, Oriented x3 Results/Procedures Lab Laboratory Tests 12/16/22 05:09 Patient resulted labs reviewed. Assessment/Plan Assessment and Plan Assess & Plan/Chief Complaint AFib with moderate RVR (12/13) - OAC with Eliquis since 12/13 - Diltiazem 180 mg PO since 12/14 - Diltiazem HCl IVP 1 mg on 12/13 Acute on chronic diastolic HF Echo done 12/06/22 showed LVEF 45-50%, hypokinesis of the apical septal myocardium, and moderate LA and RA dilation Echo done 04/2021 showed mild concentric LV hypertrophy - BNP of 940 at the ED on 12/13 - Entresto since 12/14 - Lasix PO since 12/16 - Lasix 40 mg IV from 12/13-12/16 CAD nuclear stress test in 05/2021 was suboptimal but without ischemic or infarction - Aspirin 81 mg since 12/13 Elevated LFTs possibly related to hepatic congestion secondary to heart failure - trending down Hypokalemia - KCl since 12/13 HTN - Carvedilol 6.25 mg since 12/13 HLD KENDAL SPANN DO 12/17/22 0508: Supervisory-Addendum Brief Verification & Attestation Participated in pt care: history, MDM, physical Personally performed: exam, history, MDM, supervision of care Care discussed with: Medical Student Procedures: n/a Results interpretation: Verified all documentation Verification and Attestation of Medical Student E/M Service A medical student performed and documented this service in my presence. I reviewed and verified all information documented by the medical student and made modifications to such information, when appropriate. I personally performed the physical exam and medical decision making. Kendal Spann, Dec 17, 2022,05:08 ANDIE HUANG Dec 16, 2022 17:44 KENDAL SPANN DO Dec 17, 2022 05:08
[2022-12-16 19:31] VITALS: BP 138/83
[2022-12-16] MEDS: SACUBITRIL/VALSARTAN 24/26 MG (ENTRESTO) TABLET PO SCH (19:59)
[2022-12-16 23:24] VITALS: BP 119/73
[2022-12-17] VITALS (19 sets, daily range): BP systolic 99–147; BP diastolic 64–95
[2022-12-17 05:47] LABS: ALBUMIN 3.5 GM/DL (3.2-4.5); BILIRUBIN,TOTAL 0.7 MG/DL (0.1-1.0); CALCIUM 8.9 MG/DL (8.5-10.1); CREATININE SERUM 0.92 MG/DL (0.60-1.30); MAGNESIUM 1.9 MG/DL (1.6-2.4); POTASSIUM 3.6 MMOL/L (3.6-5.0); TOTAL PROTEIN 5.7 GM/DL (6.4-8.2)
[2022-12-17] MEDS: NS IV 1000 ML 1,000 ML IV SCH (06:35)
[2022-12-17] MEDS: MULTIVIT W/MINERALS TAB (THERAGRAN M) PO SCH (06:35)
[2022-12-17] MEDS ORDERED: LIDOCAINE 1% INJ 20 ML VIAL ONE (07:34)
[2022-12-17] MEDS ORDERED: HEParin (CATH LAB) 2,000 ML IV ONE (07:35)
[2022-12-17] MEDS: APIXABAN 5 MG (ELIQUIS) TABLET PO SCH ×2 (09:05→20:17)
[2022-12-17] MEDS: FUROSEMIDE 40 MG (LASIX) TAB PO SCH (09:05)
[2022-12-17] MEDS: ASPIRIN E.C. 81 MG (ECOTRIN) TAB PO SCH (09:05)
[2022-12-17] MEDS: KCL 10 MEQ TAB (MICRO K) PO SCH ×2 (09:05→17:08)
[2022-12-17] MEDS: SACUBITRIL/VALSARTAN 24/26 MG (ENTRESTO) TABLET PO SCH ×2 (09:06→20:17)
[2022-12-17] MEDS: DOCUSATE SODIUM 100 MG (COLACE) CAP PO SCH ×2 (09:46→21:06)
[2022-12-17] MEDS: SENNOSIDES 8.6 MG (SENOKOT) TAB PO SCH ×2 (09:47→21:06)
[2022-12-17] MEDS ORDERED: fentaNYL INJ 100 MCG/2 ML AMP ONE (12:26)
[2022-12-17] MEDS ORDERED: MIDAZOLAM 5 MG/5 ML (VERSED) VIAL ONE (12:26)
--- NOTE | 2022-12-17 13:47 | Progress Note - Hospitalist ---
ANDIE HUANG 12/17/22 1347: Subjective HPI/CC On Admission Chief complaint: Shortness of breath HPI: This is a 72-year-old male clinic patient Dr. Godinez who has a past medical history of CAD previous stents who presents to the ICU following an ER work-up which revealed acute congestive heart failure with volume overload in need of IV diuresis and cardiology care. Patient is currently feeling about the same and has not urinated since Lasix 40 Mg given. Patient denies any pain. Subjective/Events-last exam Dariusz Godoy is a 72 yo male who with a history HTN, HFpEF, CAD and HLD who presented to the ED on 12/15 for lower extremity edema and worsening dyspnea of 6 days duration. Per ED notes, he was started on Lasix 20 mg 1 week prior by his PCP and but felt his swelling had only increased since. Further review of his history showed LVEF of 45-50%, hypokinesis of the apical septal mycocardium, RA and LA dilation (Echo on 12/06/22), mild concentric hypertrophy (Echo on 04/2021), and suboptimal nuclear stress test on 05/2021. ED workup showed mildly elevated troponin (0.050), elevated BNP (940), EKG findings suggestive of a potential junctional rhythm then atrial fibrillation with RVR, elevated LFTs, and hypokalemia; that patient was admitted to the ICU with diagnoses of AFib with moderate RVR, acute on chronic diastolic HF, hypokalemia and elevated LFTs. Lasix 40 mg IV, Eliquis 5 mg PO, diltiazem 1 IVP 1 mg, Lasix 40 mg IV bid, 20 mEq and home medications were started. On 12/14, the patient was started on Entresto 24 mg and transitioned to Diltiazem 180 mg PO. His rate was overall controlled thereafter, though he continued to have irregular rhythm on ascultation. The patients dyspnea and lower extremity edema began to greatly improve by 12/15; by 12/16 he denied all shortness of breath during rest. The patient's elevated AST/ALT were suspected to be to hepatobiliary congestion secondary to acute heart failure; they trended down throughout his course to 66 and 252 on 12/17. Hypokalemia resolved by 12/17. EKG done 12/17 showed multiple PVCs, RBBB, LAFB, and abmormal T-waves potentially reflective of ischemia; the patient is scheduled for cardiac catherization and discharge pending results. Objective Exam Vital Signs Vital Signs Date Time Temp Pulse Resp B/P (MAP) Pulse Ox O2 Delivery O2 Flow Rate FiO2 12/17/22 13:00 69 12/17/22 11:25 35.9 18 140/78 (98) 91 Room Air 12/17/22 05:11 21 12/14/22 09:00 2.00 Capillary Refill : Less Than 3 Seconds General Appearance: No Apparent Distress Respiratory: Lungs Clear, Normal Breath Sounds, No Accessory Muscle Use Cardiovascular: Regular Rate, Rhythm Gastrointestinal: Normal Bowel Sounds Back: Normal Inspection Extremity: No Pedal Edema Neurologic/Psychiatric: Alert, Oriented x3 Results/Procedures Lab Laboratory Tests 12/17/22 05:00 Patient resulted labs reviewed. Assessment/Plan Assessment and Plan Assess & Plan/Chief Complaint AFib with moderate RVR (12/13) - EKG done 12/17 showed multiple PVCs, RBBB, LAFB, and abmormal T-waves - OAC with Eliquis since 12/13 - Diltiazem 180 mg PO since 12/14 - Diltiazem HCl IVP 1 mg on 12/13 Acute on chronic diastolic HF Echo done 12/06/22 showed LVEF 45-50%, hypokinesis of the apical septal myocardium, and moderate LA and RA dilation Echo done 04/2021 showed mild concentric LV hypertrophy - BNP of 940 at the ED on 12/13 - Entresto since 12/14 - Lasix PO since 12/16 - Lasix 40 mg IV from 12/13-12/16 CAD nuclear stress test in 05/2021 was suboptimal but without ischemic or infarction - catheterization scheduled for 12/17 - Aspirin 81 mg since 12/13 Elevated LFTs possibly related to hepatic congestion secondary to heart failure - trending down Hypokalemia - KCl since 12/13 HTN - Carvedilol 6.25 mg since 12/13 GOVINDD KENDAL SPANN DO 12/18/22 0609: Supervisory-Addendum Brief Verification & Attestation Participated in pt care: history, MDM, physical Personally performed: exam, history, MDM, supervision of care Care discussed with: Medical Student Procedures: n/a Results interpretation: Verified all documentation Verification and Attestation of Medical Student E/M Service A medical student performed and documented this service in my presence. I reviewed and verified all information documented by the medical student and made modifications to such information, when appropriate. I personally performed the physical exam and medical decision making. Kendal Spann, Dec 18, 2022,06:09 ANDIE HUAGN Dec 17, 2022 13:47 KENDAL SPANN DO Dec 18, 2022 06:09
[2022-12-17] MEDS ORDERED: HEParin 1000 UNIT/ML (10ML VIAL) FOR BOLUS ONE (14:53)
[2022-12-17] MEDS ORDERED: EPTIFIBATIDE BOLUS 20 ML IV ONE (15:08)
[2022-12-17] MEDS ORDERED: CLOPIDOGREL 300 MG (PLAVIX) TABLET PO ONE (15:33)
--- NOTE | 2022-12-17 15:34 | Progress Note - Cardiology ---
Cardiology SOAP Progress Note Subjective: shortness of breath improved intermittent palp present no syncope no n/v/d no swelling gen weakness Objective: I&O/Vital Signs 12/17/22 12/17/22 12/17/22 12/17/22 03:59 05:11 07:00 07:42 Temp 36.4 35.4 36.5 Pulse 69 69 131 63 Resp 18 18 B/P (MAP) 117/82 (94) 143/86 (105) Pulse Ox 92 92 92 O2 Delivery Room Air Room Air FiO2 21 12/17/22 12/17/22 12/17/22 12/17/22 08:00 08:01 11:25 13:00 Temp 35.9 Pulse 61 69 Resp 18 B/P (MAP) 140/78 (98) Pulse Ox 96 91 O2 Delivery Room Air Room Air Room Air 12/17/22 00:00 Intake Total 2170 ml Balance 2170 ml Constitutional: AAO x 3, well-developed, well-nourished Respiratory: No accessory muscle use, No respiratory distress; chest expansion is symmetric, chest is bilaterally symmetric, lungs clear to auscultation Cardiovascular: regular rate-rhythm; No JVD; S1 and S2 Gastrointestional: No tender; soft, round, audible bowel sounds Extremities: other (bilat mild to mod LE swelling) Neurologic/Psychiatric: other (moves all limbs equally) Skin: No rash on exposed areas, No ulcerations on exposed areas Results/Procedures: Labs Laboratory Tests 12/17/22 05:00: White Blood Count 4.9, Red Blood Count 3.98L, Hemoglobin 13.3, Hematocrit 40, Mean Corpuscular Volume 99, Mean Corpuscular Hemoglobin 33, Mean Corpuscular Hemoglobin Concent 34, Red Cell Distribution Width 13.3, Platelet Count 127L, Mean Platelet Volume 11.3, Immature Granulocyte % (Auto) 0, Neutrophils (%) (Auto) 51, Lymphocytes (%) (Auto) 30, Monocytes (%) (Auto) 19H, Eosinophils (%) (Auto) 0, Basophils (%) (Auto) 0, Neutrophils # (Auto) 2.5, Lymphocytes # (Auto) 1.5, Monocytes # (Auto) 0.9, Eosinophils # (Auto) 0.0, Basophils # (Auto) 0.0, Immature Granulocyte # (Auto) 0.0, Neutrophils % (Manual) 52, Lymphocytes % (Manual) 32, Monocytes % (Manual) 15, Atypical Lymphocytes 1, Percent Immature Platelet Fraction 6.2, Blood Morphology Comment NORMAL, Sodium Level 141, Potassium Level 3.6, Chloride Level 103, Carbon Dioxide Level 26, Anion Gap 12, Blood Urea Nitrogen 15, Creatinine 0.92, Estimat Glomerular Filtration Rate 88, BUN/Creatinine Ratio 16, Glucose Level 132H, Calcium Level 8.9, Corrected Calcium 9.3, Magnesium Level 1.9, Total Bilirubin 0.7, Aspartate Amino Transf (AST/SGOT) 66H, Alanine Aminotransferase (ALT/SGPT) 252H, Alkaline Phosphatase 79, Total Protein 5.7L, Albumin 3.5 Microbiology 12/13/22 MRSA Screen - Final, Complete MRSA not isolated Laboratory Tests 12/16/22 05:09 12/17/22 05:00 A/P: Assessment: PAF/Fl with intermittent RVR - currently SR with controlled rate - first dx on ECG of 12-13-22 in the ED - OAC with Eliquis Acute on chronic systolic and diastolic CHF: - Echo 05/08/[address] Reynolds: Normal left ventricular chamber size with mild concentric left ventricular hypertrophy. Normal left ventricular systolic function with an estimated ejection fraction of 60-65%. The left ventricular diastolic function is indeterminate.,The left atrium is mild to moderately dilated.The estimated pulmonary artery systolic pressure is 35 mmHg. - Echocardiogram of 12-06-[address] Reynolds showed: LVEF 45-50%. Hypokinesis of the apical septal and apical myocardium. LA is mod dilatd. RA is mildly dilated. Mild AoV sclerosis with mild AoR. Mod MR. PASP 45 mmHg CAD treated with balloon angioplasty of mid-LAD on 12-17-22 (see below) - Cardiac cath (10/08/2013) at [facility] in [place], [place] by Dr. Beebe: Mild obstruction in the mid segment of the left anterior descending coronary artery and origin of the first diagonal branch of the LAD. Normal right coronary artery and circumflex artery. Normal left ventricular angiogram. - Treadmill nuclear graeme (06/14/2021) by Dr. Reynolds: suboptimal but w/o evidence of ischemia or infarction and with LVEF 71% - Card cath on 12-17-22: LMCA Ok, LAD 80% mid to <10% with balloon angioplasty (2 mm vessel), mod diffuse disease of LAD and RCA, mild plaque of LCx, RCA dominant, LVEDP 11 mmHg, LVEF 40-45% HTN HLD Renal insufficiency, probably acute, probably ATN due to low CO and intermittent hypotension Elevated liver enzymes, worsening - possibly secondary to hepato-biliary congestion d/t decompensated CHF Elevated BMI - approx 37 Suspected sleep apnea Plan: * Complex management due to multiple CV comorbidities (CAD, PAF, CHF) * Add Plavix for a few day (continue apixaban for stroke prophylaxis and ASA for CAD) * Replenish K * Monitor labs * I discussed the rationale, procedure, risks, benefits, potential complic ations, and alternatives of card cath and possible ad hoc cor intervention with him and answered questions. He understands and provides informed consent RETA VARELA MD FACP FAC CCDS Dec 17, 2022 15:34
[2022-12-17] MEDS ORDERED: PATIENT MAY USE OWN MEDS, ALL PO SCH (15:45)
[2022-12-17] MEDS ORDERED: NS IV 1000 ML 1,000 ML IV SCH (15:45)
--- NOTE | 2022-12-17 18:32 | CARDIAC CATHETERIZATION ---
DATE OF SERVICE: 12/17/2022 CARDIAC CATHETERIZATION AND CORONARY INTERVENTION INDICATION: The patient is a 72-year-old gentleman who was hospitalized with paroxysmal atrial fibrillation. His echocardiography earlier had indicated apical hypokinesis, indicative of ischemic cardiomyopathy. He was in heart failure at time of admission. This was treated. Then, informed consent was obtained for cardiac catheterization, given his new onset of congestive heart failure and evidence of ischemic cardiomyopathy on echocardiography. Informed consent was obtained for cardiac catheterization, possible ad hoc coronary intervention. DESCRIPTION OF PROCEDURE: The patient was brought to the cardiac catheterization laboratory in a fasting state. Right groin was prepped and draped in the usual sterile fashion. A 1% lidocaine used for local anesthesia. Modified Seldinger technique was used to advance a 5-Armenian sheath in the right femoral artery. A 5-Armenian JL4 catheter was used for left coronary angiography, 5-Armenian JR4 catheter was used for right coronary angiography, 5-Armenian pigtail catheter was used for left heart catheterization and left ventricular angiography. Subsequently, we carried out iFR measurement in the left anterior descending and this then led to percutaneous intervention of the left anterior descending because the iFR was abnormal at baseline. This was described below. IFR MEASUREMENT IN THE LEFT ANTERIOR DESCENDING: We exchanged the sheath over a wire for a 6-Armenian sheath. We used a 6-Armenian JL4 guide catheter with which we engaged the left coronary artery and advanced the pressure wire across the mid vessel lesion in the left anterior descending and iFR was found to be 0.83, indicating that the lesion was hemodynamically significant and we then carried out balloon angioplasty of this vessel. Following balloon angioplasty, the iFR improved from 0.83 to 0.91, indicating that the lesion was not hemodynamically significant any longer after balloon angioplasty. PERCUTANEOUS INTERVENTION TO THE LEFT ANTERIOR DESCENDING: We had engaged the left coronary artery with a 6-Armenian JL4 guide catheter and a pressure wire had been passed across the lesion. The stenosis prior to balloon angioplasty was 80% and flow was SILVANO 3. We carried out balloon angioplasty with a 2.0 x 12 mm balloon. This reduced the stenosis from 80% to less than 10% and the SILVANO flow remained 3 (SILVANO 3) and the iFR improved from 0.83-0.91. The angioplasty equipment was then removed. Angiography of the right femoral artery was carried out through the sheath and Mynx was used to seal hemostasis. He tolerated the procedure well. HEMODYNAMICS: Left ventricular end diastolic pressure following coronary angiography was 11 mmHg. There was no significant pressure gradient on pullback across the aortic valve. LEFT VENTRICULAR ANGIOGRAPHY: Left ventricular angiography was carried out in the right anterior oblique projection. There appears to be mild to moderate hypokinesis, which is most prominent in the apical part of the left ventricle. Left ventricular ejection fraction is approximately 40-45%. CORONARY ANGIOGRAPHY: Left main coronary artery does not exhibit significant disease. Left anterior descending artery had diffuse disease and there was approximately 80% mid vessel stenosis, which was hemodynamically significant (as ascertained by iFR). Through this, successful balloon angioplasty was carried out, which reduced the stenosis from 80% to less than 10%. So, SILVANO flow was 3 before and after the procedure. The iFR improved from 0.83 to 0.91 following balloon angioplasty. The rest of the left anterior descending has [id number] diffuse disease. The left circumflex artery is nondominant and has mild diffuse disease. The right coronary artery is large and dominant and has [id number] diffuse disease. CONCLUSIONS: 1. Coronary artery disease, primarily consisting of 80% mid vessel stenosis of the left anterior descending to which successful balloon angioplasty was carried out, which reduced the stenosis to less than 10%. This is a small caliber vessel. The rest of the coronary arteries have diffuse mild to moderate disease. Right coronary artery is dominant. 2. Left ventricular end-diastolic pressure 11 mmHg. 3. Impaired of left ventricular systolic function with an ejection fraction of 40-45% and global hypokinesis that is more prominent at the left ventricular apex. Job ID: [id number] DocumentID: [id number] Dictated Date: 12/17/2022 15:48:33 Conversion Developer Date: 12/17/2022 18:30:00 Dictated By: RETA VARELA MD; STEFANI; FACP; FACC; VERONICA
[2022-12-18 03:17] VITALS: BP 115/60
[2022-12-18] MEDS: NS IV 1000 ML 1,000 ML IV SCH (03:17)
[2022-12-18 05:52] LABS: BASOPHILS % (AUTO) 0 % (0-10); EOSINOPHILS % (AUTO) 1 % (0-10); HEMATOCRIT 41 % (40-54); HEMOGLOBIN 14.2 g/dL (13.3-17.7); LYMPHOCYTES # (AUTO) 1.3 10^3/uL (1.0-4.0); LYMPHOCYTES % (AUTO) 29 % (12-44); MEAN CORPUSCULAR HEMOGLOBIN 33 pg (25-34); MEAN CORPUSCULAR HGB CONC 34 g/dL (32-36); MEAN CORPUSCULAR VOLUME 97 fL (80-99); MEAN PLATELET VOLUME 11.3 fL (9.0-12.2); MONOCYTES # (AUTO) 0.8 10^3/uL (0.0-1.0); MONOCYTES % (AUTO) 18 % (0-12); NEUTROPHILS # (AUTO) 2.3 10^3/uL (1.8-7.8); NEUTROPHILS % (AUTO) 52 % (42-75); PLATELET COUNT 146 10^3/uL (130-400); WHITE BLOOD COUNT 4.4 10^3/uL (4.3-11.0)
[2022-12-18] MEDS: MULTIVIT W/MINERALS TAB (THERAGRAN M) PO SCH (06:10)
[2022-12-18 06:21] LABS: ALBUMIN 3.5 GM/DL (3.2-4.5); BILIRUBIN,TOTAL 0.9 MG/DL (0.1-1.0); CALCIUM 8.6 MG/DL (8.5-10.1); CREATININE SERUM 0.85 MG/DL (0.60-1.30); MAGNESIUM 1.8 MG/DL (1.6-2.4); POTASSIUM 3.2 MMOL/L (3.6-5.0); TOTAL PROTEIN 5.9 GM/DL (6.4-8.2)
[2022-12-18 07:25] VITALS: BP 132/80
[2022-12-18] MEDS: SACUBITRIL/VALSARTAN 24/26 MG (ENTRESTO) TABLET PO SCH ×2 (08:13→20:53)
[2022-12-18] MEDS: APIXABAN 5 MG (ELIQUIS) TABLET PO SCH ×2 (08:13→20:53)
[2022-12-18] MEDS: KCL 10 MEQ TAB (MICRO K) PO SCH ×2 (08:13→17:26)
[2022-12-18] MEDS: ASPIRIN E.C. 81 MG (ECOTRIN) TAB PO SCH (08:14)
[2022-12-18] MEDS: FUROSEMIDE 40 MG (LASIX) TAB PO SCH (08:14)
[2022-12-18] MEDS: DOCUSATE SODIUM 100 MG (COLACE) CAP PO SCH ×2 (08:15→20:53)
[2022-12-18] MEDS: SENNOSIDES 8.6 MG (SENOKOT) TAB PO SCH ×2 (08:15→20:53)
[2022-12-18] MEDS ORDERED: KCL 20 MEQ TAB (K-DUR) PO NR ×2 (08:30→12:00)
[2022-12-18] MEDS ORDERED: DIGOXIN 0.125 MG (LANOXIN) TAB PO NR (09:00)
[2022-12-18] MEDS: MAGNESIUM 1 GM/100 ML IVPB 100 ML IV SCH ×2 (09:13→10:18)
[2022-12-18] MEDS ORDERED: DIGO125T18 PO (09:40)
[2022-12-18] MEDS ORDERED: DILT180C85 PO (09:40)
[2022-12-18] MEDS ORDERED: ATOR40TA70 PO (09:40)
[2022-12-18] MEDS ORDERED: SACU1TAB2 PO (09:40)
[2022-12-18] MEDS ORDERED: CARV3.122 PO (09:40)
[2022-12-18] MEDS ORDERED: APIX5TAB PO (09:40)
[2022-12-18] MEDS ORDERED: ASPI-1238 PO (09:40)
--- NOTE | 2022-12-18 09:41 | Discharge Summary ---
Discharge Summary Hospital Course Problems/Dx: (1) Junctional tachycardia Status: Acute (2) New onset atrial fibrillation Status: Acute (3) CHF (congestive heart failure) Status: Acute Hospital Course Date of Admission: Dec 13, 2022 at 13:47 Admission Diagnosis : Family Physician/Provider: Obed Godinez MD Date of Discharge: 12/18/22 Discharge Diagnosis: [ ] Hospital Course: [ ] Labs and Pending Lab Test: Laboratory Tests 12/18/22 05:20: White Blood Count 4.4, Red Blood Count 4.25L, Hemoglobin 14.2, Hematocrit 41, Mean Corpuscular Volume 97, Mean Corpuscular Hemoglobin 33, Mean Corpuscular Hemoglobin Concent 34, Red Cell Distribution Width 13.2, Platelet Count 146, Mean Platelet Volume 11.3, Immature Granulocyte % (Auto) 1, Neutrophils (%) (Auto) 52, Lymphocytes (%) (Auto) 29, Monocytes (%) (Auto) 18H, Eosinophils (%) (Auto) 1, Basophils (%) (Auto) 0, Neutrophils # (Auto) 2.3, Lymphocytes # (Auto) 1.3, Monocytes # (Auto) 0.8, Eosinophils # (Auto) 0.0, Basophils # (Auto) 0.0, Immature Granulocyte # (Auto) 0.0, Sodium Level 139, Potassium Level 3.2L, Chloride Level 102, Carbon Dioxide Level 25, Anion Gap 12, Blood Urea Nitrogen 12, Creatinine 0.85, Estimat Glomerular Filtration Rate 92, BUN/Creatinine Ratio 14, Glucose Level 117H, Calcium Level 8.6, Corrected Calcium 9.0, Magnesium Level 1.8, Total Bilirubin 0.9, Aspartate Amino Transf (AST/SGOT) 46H, Alanine Aminotransferase (ALT/SGPT) 189H, Alkaline Phosphatase 70, Total Protein 5.9L, Albumin 3.5 Microbiology 12/13/22 MRSA Screen - Final, Complete MRSA not isolated Home Meds Active Entresto 24 mg-26 mg Tablet (Sacubitril/Valsartan) 24 Mg-26 Mg Tablet 1 Tab PO BID Diltiazem 24Hr ER (Diltiazem HCl) 180 Mg Cap.er.24h 360 Mg PO DAILY Carvedilol 3.125 Mg Tablet 6.25 Mg PO BID Digox (Digoxin) 125 Mcg (0.125 Mg) Tablet 0.125 Mg PO DAILY Eliquis (Apixaban) 5 Mg Tablet 5 Mg PO BID Aspirin EC (Aspirin) 81 Mg Tablet.dr 81 Mg PO DAILY Atorvastatin Calcium 40 Mg Tablet 40 Mg PO HS Reported Lisinopril 20 Mg Tablet 20 Mg PO DAILY LAST FILLED 06-20-2022 #90/90 DAY SUPPLY Multivitamin 1 Each Tablet 1 Each PO DAILY Metoprolol Tartrate 25 Mg Tablet 25 Mg PO BID Citalopram HBr (Citalopram Hydrobromide) 20 Mg Tablet 20 Mg PO DAILY Amlodipine Besylate 5 Mg Tablet 5 Mg PO DAILY Furosemide 20 Mg Tablet 20 Mg PO DAILY Discharge Physical Examination Vital Signs Vital Signs Date Time Temp Pulse Resp B/P (MAP) Pulse Ox O2 Delivery O2 Flow Rate FiO2 12/18/22 08:14 84 12/18/22 07:25 37.0 20 132/80 (97) 95 Room Air 12/17/22 05:11 21 12/14/22 09:00 2.00 Allergies: Coded Allergies: codeine (Unverified Allergy, Unknown, 06/14/21) Discharge Summary Date of Admission Dec 13, 2022 at 13:47 Date of Discharge Discharge Date: Dec 18, 2022 Admission Diagnosis Assessment: Junctional tachycardia requiring Cardizem drip Acute congestive heart failure Suspected ischemic cardiomyopathy Hypertension Chronic kidney disease Hypoxia Obesity Suspected MARIAELENA has sleep study scheduled Plan: Cardizem drip Cardiology consult Echo Diuresis O2 Discharge Diagnosis Assessment: Junctional tachycardia requiring Cardizem drip now normal sinus rhythm Acute congestive heart failure Suspected ischemic cardiomyopathy Hypertension Chronic kidney disease Hypoxia Obesity Suspected MARIAELENA has sleep study scheduled Plan: Cardizem drip dc Cardiology consult Echo Diuresis O2 Moved to fourth floor (1) Junctional tachycardia Status: Acute (2) New onset atrial fibrillation Status: Acute (3) CHF (congestive heart failure) Status: Acute GUME SPANN DO Dec 18, 2022 09:41
[2022-12-18 11:16] VITALS: BP 121/63
--- NOTE | 2022-12-18 12:38 | Progress Note - Cardiology ---
Cardiology SOAP Progress Note Subjective: Shortness of breath improving Gen weakness improving No groin or leg discomfort or discoloration No cp or palp or syncope No focal weakness No n/v/d Objective: I&O/Vital Signs 12/18/22 12/18/22 12/18/22 12/18/22 01:00 03:17 07:21 07:25 Temp 36.2 37.0 Pulse 69 66 62 70 Resp 18 20 B/P (MAP) 115/60 (78) 132/80 (97) Pulse Ox 93 95 O2 Delivery Room Air Room Air 12/18/22 12/18/22 12/18/22 12/18/22 07:57 08:00 08:14 11:16 Temp 36.3 Pulse 139 84 66 Resp 18 B/P (MAP) 121/63 (82) Pulse Ox 96 92 O2 Delivery Room Air Room Air 12/18/22 00:00 Intake Total 0 ml Output Total 3800 ml Balance -3800 ml Condition: DP/PT pulses palpable Bruising: mild bruising Constitutional: AAO x 3, well-developed, well-nourished Respiratory: No accessory muscle use, No respiratory distress; chest expansion is symmetric, chest is bilaterally symmetric, lungs clear to auscultation Cardiovascular: regular rate-rhythm; No JVD; S1 and S2 Gastrointestional: No tender; soft, round, audible bowel sounds Extremities: other (bilat mild to mod LE swelling) Neurologic/Psychiatric: other (moves all limbs equally) Skin: No rash on exposed areas, No ulcerations on exposed areas Results/Procedures: Labs Laboratory Tests 12/18/22 05:20: White Blood Count 4.4, Red Blood Count 4.25L, Hemoglobin 14.2, Hematocrit 41, Mean Corpuscular Volume 97, Mean Corpuscular Hemoglobin 33, Mean Corpuscular Hemoglobin Concent 34, Red Cell Distribution Width 13.2, Platelet Count 146, Mean Platelet Volume 11.3, Immature Granulocyte % (Auto) 1, Neutrophils (%) (Auto) 52, Lymphocytes (%) (Auto) 29, Monocytes (%) (Auto) 18H, Eosinophils (%) (Auto) 1, Basophils (%) (Auto) 0, Neutrophils # (Auto) 2.3, Lymphocytes # (Auto) 1.3, Monocytes # (Auto) 0.8, Eosinophils # (Auto) 0.0, Basophils # (Auto) 0.0, Immature Granulocyte # (Auto) 0.0, Sodium Level 139, Potassium Level 3.2L, Chloride Level 102, Carbon Dioxide Level 25, Anion Gap 12, Blood Urea Nitrogen 12, Creatinine 0.85, Estimat Glomerular Filtration Rate 92, BUN/Creatinine Ratio 14, Glucose Level 117H, Calcium Level 8.6, Corrected Calcium 9.0, Magnesium Level 1.8, Total Bilirubin 0.9, Aspartate Amino Transf (AST/SGOT) 46H, Alanine Aminotransferase (ALT/SGPT) 189H, Alkaline Phosphatase 70, Total Protein 5.9L, Albumin 3.5 Microbiology 12/13/22 MRSA Screen - Final, Complete MRSA not isolated Laboratory Tests 12/17/22 05:00 12/18/22 05:20 A/P: Assessment: PAF/Fl with intermittent RVR - first dx on ECG of 12-13-22 in the ED - OAC with Eliquis Acute on chronic systolic and diastolic CHF: - Echo 05/08/[address] Reynolds: Normal left ventricular chamber size with mild concentric left ventricular hypertrophy. Normal left ventricular systolic function with an estimated ejection fraction of 60-65%. The left ventricular diastolic function is indeterminate.,The left atrium is mild to moderately dilated.The estimated pulmonary artery systolic pressure is 35 mmHg. - Echocardiogram of 12-06-[address] Reynolds showed: LVEF 45-50%. Hypokinesis of the apical septal and apical myocardium. LA is mod dilatd. RA is mildly dilated. Mild AoV sclerosis with mild AoR. Mod MR. PASP 45 mmHg CAD treated with balloon angioplasty of mid-LAD on 12-17-22 (see below) - Cardiac cath (10/08/2013) at [facility] in [place], [place] by Dr. Beebe: Mild obstruction in the mid segment of the left anterior descending coronary artery and origin of the first diagonal branch of the LAD. Normal right coronary artery and circumflex artery. Normal left ventricular angiogram. - Treadmill nuclear graeme (06/14/2021) by Dr. Reynolds: suboptimal but w/o evidence of ischemia or infarction and with LVEF 71% - Card cath on 12-17-22: LMCA Ok, LAD 80% mid to <10% with balloon angioplasty (2 mm vessel), mod diffuse disease of LAD and RCA, mild plaque of LCx, RCA dominant, LVEDP 11 mmHg, LVEF 40-45% HTN HLD Renal insufficiency, probably acute, probably ATN due to low CO and intermittent hypotension Elevated liver enzymes, worsening - possibly secondary to hepato-biliary congestion d/t decompensated CHF Elevated BMI - approx 37 Suspected sleep apnea Plan: * Still experiencing fairly frequent PAF with RVR. Add dig * Complex management due to multiple CV comorbidities (CAD, PAF, CHF) * Add Plavix for a few day (continue apixaban for stroke prophylaxis and ASA for CAD) * Replenish K * Monitor labs RETA VARELA MD FACP FAC CCDS Dec 18, 2022 12:38
--- NOTE | 2022-12-18 14:12 | Progress Note ---
ANDIE HUANG 12/18/22 1412: Progress Note Dariusz Godoy is a 72 yo male with a history of HTN, HFpEF, CAD and HLD who presented to the ED on 12/15 for lower extremity edema and worsening dyspnea of 6 days duration. Per ED notes, he was started on Lasix 20 mg 1 week prior by his PCP and but felt his swelling had only increased since. Further review of his history revealed the following: a 12/06/2022 echocardiogram demonstrating LVEF of 45-50%, hypokinesis of the apical septal mycocardium, and atrial dilation, a 04/2021 echocardiogram demonstrating mild concentric hypertrophy, a nuclear stress test on 05/2021 showing suboptimal results, and a catherization on 11/2022 showing mild obstruction of the mid segment and first diagonal branch of the LAD. ED evaluation showed mildly elevated troponin (0.050), elevated BNP (940), EKGs suggestive of a potential junctional rhythm as well atrial fibrillation with RVR, elevated LFTs, and hypokalemia; the patient was transferred to the E-ICU for these findings with an admitting diagnosis of acute on chronic heart failure. Lasix 40 mg IV, Eliquis 5 mg PO, diltiazem 1 IVP 1 mg, Lasix 40 mg IV bid, 20 mEq and home medications were started. On 12/14, the patient was started on Entresto 24 mg and transitioned to Diltiazem 180 mg PO.The patients dyspnea and lower extremity edema steadily improved; by 12/16 he denied all shortness of breath during rest. His rate was overall controlled though he continued to move in and out of SR; digoxin was added to his regimen on 12/18. EKG done 12/17 showed multiple PVCs, RBBB, LAFB, and abmormal T-waves potentially reflective of ischemia; the patient underwent cardiac catherization on 12/18, which notably showed 80% stenosis of the LAD, mid-moderate disease of the remaining arteries, and EF of 40-45%. LAD stenosis was reduced to 10% by balloon antioplasty. The patient's elevated AST/ALT were suspected to be related to hepatobiliary congestion secondary to acute heart failure; they steadily decreased to 46/189 by 12/18. Hypokalemia persisted (3.2 on 12/08). The patient was discharged on 12/18 with new diagnoses of HFrEF, ischemic cardiomyopathy, AFib with RVR, and junctional rhythm. MARIAELENA is also suspected. A appointment for a sleep study was scheduled and new home cardiac medic ations/instructions were ordered. KENDAL SPANN DO 12/18/22 1632: Supervisory-Addendum Brief Verification & Attestation Participated in pt care: history, MDM, physical Personally performed: exam, history, MDM, supervision of care Care discussed with: Medical Student Procedures: n/a Results interpretation: Verified all documentation Verification and Attestation of Medical Student E/M Service A medical student performed and documented this service in my presence. I reviewed and verified all information documented by the medical student and made modifications to such information, when appropriate. I personally performed the physical exam and medical decision making. Kendal Spann, Dec 18, 2022,16:32 ANDIE HUANG Dec 18, 2022 14:12 KENDAL SPANN DO Dec 18, 2022 16:32
[2022-12-18 15:26] VITALS: BP 123/73
--- NOTE | 2022-12-18 15:57 | Progress Note - Hospitalist ---
Subjective HPI/CC On Admission Date Seen by Provider: Dec 18, 2022 Time Seen by Provider: 10:00 Chief complaint: Shortness of breath HPI: This is a 72-year-old male clinic patient Dr. Godinez who has a past medical history of CAD previous stents who presents to the ICU following an ER work-up which revealed acute congestive heart failure with volume overload in need of IV diuresis and cardiology care. Patient is currently feeling about the same and has not urinated since Lasix 40 Mg given. Patient denies any pain. Subjective/Events-last exam Waiting another day for DC per Cardiology Dariusz Godoy is a 72 yo male with a history of HTN, HFpEF, CAD and HLD who presented to the ED on 12/15 for lower extremity edema and worsening dyspnea of 6 days duration. Per ED notes, he was started on Lasix 20 mg 1 week prior by his PCP and but felt his swelling had only increased since. Further review of his history revealed the following: a 12/06/2022 echocardiogram demonstrating LVEF of 45-50%, hypokinesis of the apical septal mycocardium, and atrial dilation, a 04/2021 echocardiogram demonstrating mild concentric hypertrophy, a nuclear stress test on 05/2021 showing suboptimal results, and a catherization on 11/2022 showing mild obstruction of the mid segment and first diagonal branch of the LAD. ED evaluation showed mildly elevated troponin (0.050), elevated BNP (940), EKGs suggestive of a potential junctional rhythm as well atrial fibrillation with RVR, elevated LFTs, and hypokalemia; the patient was transferred to the E-ICU for these findings with an admitting diagnosis of acute on chronic heart failure. Lasix 40 mg IV, Eliquis 5 mg PO, diltiazem 1 IVP 1 mg, Lasix 40 mg IV bid, 20 mEq and home medications were started. On 12/14, the patient was started on Entresto 24 mg and transitioned to Diltiazem 180 mg PO.The patients dyspnea and lower extremity edema steadily improved; by 12/16 he denied all shortness of breath during rest. His rate was overall controlled though he continued to move in and out of SR; digoxin was added to his regimen on 12/18. EKG done 12/17 showed multiple PVCs, RBBB, LAFB, and abmormal T-waves potentially reflective of ischemia; the patient underwent cardiac catherization on 12/18, which notably showed 80% stenosis of the LAD, mid-moderate disease of the remaining arteries, and EF of 40-45%. LAD stenosis was reduced to 10% by balloon antioplasty. The patient's elevated AST/ALT were suspected to be related to hepatobiliary congestion secondary to acute heart failure; they steadily decreased to 46/189 by 12/18. Hypokalemia persisted (3.2 on 12/08). The patient was discharged on 12/18 with new diagnoses of HFrEF, ischemic cardiomyopathy, AFib with RVR, and junctional rhythm. MARIAELENA is also suspected. A appointment for a sleep study was scheduled and new home cardiac medications/instructions were ordered. Objective Exam Vital Signs Vital Signs Date Time Temp Pulse Resp B/P (MAP) Pulse Ox O2 Delivery O2 Flow Rate FiO2 12/18/22 15:26 36.4 70 20 123/73 (90) 95 Room Air 12/17/22 05:11 21 12/14/22 09:00 2.00 Capillary Refill : Less Than 3 Seconds General Appearance: No Apparent Distress, WD/WN, Chronically ill, Obese Respiratory: Lungs Clear Cardiovascular: Regular Rate, Rhythm Results/Procedures Lab Laboratory Tests 12/18/22 05:20 Patient resulted labs reviewed. Assessment/Plan Assessment and Plan Assess & Plan/Chief Complaint Assessment: Junctional tachycardia requiring Cardizem drip now normal sinus rhythm Acute congestive heart failure Suspected ischemic cardiomyopathy Hypertension Chronic kidney disease Hypoxia Obesity Suspected MARIAELENA has sleep study scheduled Plan: Cardizem drip dc Cardiology consult Echo Diuresis O2 Moved to fourth floor Diagnosis/Problems Diagnosis/Problems (1) Junctional tachycardia Status: Acute (2) New onset atrial fibrillation Status: Acute (3) CHF (congestive heart failure) Status: Acute GUME SPANN DO Dec 18, 2022 15:57
[2022-12-18 19:46] VITALS: BP 145/67
[2022-12-18 23:16] VITALS: BP 142/79
[2022-12-19 03:29] VITALS: BP 143/68
[2022-12-19 05:34] LABS: BASOPHILS % (AUTO) 0 % (0-10); EOSINOPHILS % (AUTO) 1 % (0-10); HEMATOCRIT 43 % (40-54); HEMOGLOBIN 14.9 g/dL (13.3-17.7); LYMPHOCYTES # (AUTO) 1.6 10^3/uL (1.0-4.0); LYMPHOCYTES % (AUTO) 35 % (12-44); MEAN CORPUSCULAR HEMOGLOBIN 33 pg (25-34); MEAN CORPUSCULAR HGB CONC 34 g/dL (32-36); MEAN CORPUSCULAR VOLUME 96 fL (80-99); MEAN PLATELET VOLUME 10.9 fL (9.0-12.2); MONOCYTES # (AUTO) 0.8 10^3/uL (0.0-1.0); MONOCYTES % (AUTO) 18 % (0-12); NEUTROPHILS % (AUTO) 45 % (42-75); PLATELET COUNT 140 10^3/uL (130-400); WHITE BLOOD COUNT 4.5 10^3/uL (4.3-11.0)
[2022-12-19 05:49] LABS: ALBUMIN 3.7 GM/DL (3.2-4.5)
[2022-12-19 05:50] LABS: CHLORIDE 101 MMOL/L (98-107); POTASSIUM 3.8 MMOL/L (3.6-5.0); SODIUM 137 MMOL/L (135-145)
[2022-12-19 05:51] LABS: CALCIUM 8.7 MG/DL (8.5-10.1)
[2022-12-19 05:52] LABS: GLUCOSE 124 MG/DL (70-105); TOTAL PROTEIN 6.1 GM/DL (6.4-8.2)
[2022-12-19 05:53] LABS: CARBON DIOXIDE 23 MMOL/L (21-32)
[2022-12-19 05:54] LABS: BILIRUBIN,TOTAL 0.7 MG/DL (0.1-1.0)
[2022-12-19 05:55] LABS: ALKALINE PHOSPHATASE 81 U/L (40-136)
[2022-12-19 05:56] LABS: CREATININE SERUM 0.89 MG/DL (0.60-1.30); GFR ESTIMATED 91
[2022-12-19 05:57] LABS: BUN/CREATININE RATIO 12
[2022-12-19 05:59] LABS: ALANINE AMINOTRANSFERASE 152 U/L (0-55)
--- NOTE | 2022-12-19 06:00 | Discharge Summary ---
Discharge Summary Hospital Course Was the Problem List Reviewed?: Yes Problems/Dx: (1) Junctional tachycardia Status: Acute (2) New onset atrial fibrillation Status: Acute (3) CHF (congestive heart failure) Status: Acute Hospital Course Date of Admission: Dec 13, 2022 at 13:47 Admission Diagnosis : Family Physician/Provider: Obed Godinez MD Date of Discharge: 12/19/22 Discharge Diagnosis: [ ] Hospital Course: Dariusz Godoy is a 72 yo male with a history of HTN, HFpEF, CAD and HLD who presented to the ED on 12/15 for lower extremity edema and worsening dyspnea of 6 days duration. Per ED notes, he was started on Lasix 20 mg 1 week prior by his PCP and but felt his swelling had only increased since. Further review of his history revealed the following: a 12/06/2022 echocardiogram demonstrating LVEF of 45-50%, hypokinesis of the apical septal mycocardium, and atrial dilation, a 04/2021 echocardiogram demonstrating mild concentric hypertrophy, a nuclear stress test on 05/2021 showing suboptimal results, and a catherization on 11/2022 showing mild obstruction of the mid segment and first diagonal branch of the LAD. ED evaluation showed mildly elevated troponin (0.050), elevated BNP (940), EKGs suggestive of a potential junctional rhythm as well atrial fibrillation with RVR, elevated LFTs, and hypokalemia; the patient was transferred to the E-ICU for these findings with an admitting diagnosis of acute on chronic heart failure. Lasix 40 mg IV, Eliquis 5 mg PO, diltiazem 1 IVP 1 mg, Lasix 40 mg IV bid, 20 mEq and home medications were started. On 12/14, the patient was started on Entresto 24 mg and transitioned to Diltiazem 180 mg PO.The patients dyspnea and lower extremity edema steadily improved; by 12/16 he denied all shortness of breath during rest. His rate was overall controlled though he continued to move in and out of SR; digoxin was added to his regimen on 12/18. EKG done 12/17 showed multiple PVCs, RBBB, LAFB, and abmormal T-waves potentially reflective of ischemia; the patient underwent cardiac catherization on 12/18, which notably showed 80% stenosis of the LAD, mid-moderate disease of the remaining arteries, and EF of 40-45%. LAD stenosis was reduced to 10% by balloon antioplasty. The patient's elevated AST/ALT were suspected to be related to hepatobiliary congestion secondary to acute heart failure; they steadily decreased to 46/189 by 12/18. Hypokalemia persisted (3.2 on 12/08). The patient was discharged on 12/18 with new diagnoses of HFrEF, ischemic cardiomyopathy, AFib with RVR, and junctional rhythm. MARIAELENA is also suspected. A appointment for a sleep study was scheduled and new home cardiac medications/instructions were ordered. Labs and Pending Lab Test: Laboratory Tests 12/19/22 05:05: Sodium Level 137, Potassium Level 3.8, Chloride Level 101, Carbon Dioxide Level 23, Anion Gap 13, Blood Urea Nitrogen 11, Creatinine 0.89, Estimat Glomerular Filtration Rate 91, BUN/Creatinine Ratio 12, Glucose Level 124H, Calcium Level 8.7, Corrected Calcium 8.9, Magnesium Level 2.0, Total Bilirubin 0.7, Aspartate Amino Transf (AST/SGOT) 35H, Alanine Aminotransferase (ALT/SGPT) 152H, Alkaline Phosphatase 81, Total Protein 6.1L, Albumin 3.7, Digoxin Level [Pending] 12/19/22 05:10: White Blood Count 4.5, Red Blood Count 4.50, Hemoglobin 14.9, Hematocrit 43, Me an Corpuscular Volume 96, Mean Corpuscular Hemoglobin 33, Mean Corpuscular Hemoglobin Concent 34, Red Cell Distribution Width 13.2, Platelet Count 140, Mean Platelet Volume 10.9, Immature Granulocyte % (Auto) 1, Neutrophils (%) (Auto) 45, Lymphocytes (%) (Auto) 35, Monocytes (%) (Auto) 18H, Eosinophils (%) (Auto) 1, Basophils (%) (Auto) 0, Neutrophils # (Auto) 2.0, Lymphocytes # (Auto) 1.6, Monocytes # (Auto) 0.8, Eosinophils # (Auto) 0.0, Basophils # (Auto) 0.0, Immature Granulocyte # (Auto) 0.0 Microbiology 12/13/22 MRSA Screen - Final, Complete MRSA not isolated Home Meds Active Entresto 24 mg-26 mg Tablet (Sacubitril/Valsartan) 24 Mg-26 Mg Tablet 1 Tab PO BID Diltiazem 24Hr ER (Diltiazem HCl) 180 Mg Cap.er.24h 360 Mg PO DAILY Carvedilol 3.125 Mg Tablet 6.25 Mg PO BID Digox (Digoxin) 125 Mcg (0.125 Mg) Tablet 0.125 Mg PO DAILY Eliquis (Apixaban) 5 Mg Tablet 5 Mg PO BID Aspirin EC (Aspirin) 81 Mg Tablet.dr 81 Mg PO DAILY Atorvastatin Calcium 40 Mg Tablet 40 Mg PO HS Reported Lisinopril 20 Mg Tablet 20 Mg PO DAILY LAST FILLED 06-20-2022 #90/90 DAY SUPPLY Multivitamin 1 Each Tablet 1 Each PO DAILY Metoprolol Tartrate 25 Mg Tablet 25 Mg PO BID Citalopram HBr (Citalopram Hydrobromide) 20 Mg Tablet 20 Mg PO DAILY Amlodipine Besylate 5 Mg Tablet 5 Mg PO DAILY Furosemide 20 Mg Tablet 20 Mg PO DAILY Assessment/Pt Instructions PCP 1 week Discharge Planning: <30 minutes discharge planning Discharge Instructions Discharge Diet: Cardiac Diet Activity as Tolerated: Yes Discharge Physical Examination Vital Signs Vital Signs Date Time Temp Pulse Resp B/P (MAP) Pulse Ox O2 Delivery O2 Flow Rate FiO2 12/19/22 03:29 36.0 66 20 143/68 (93) 93 Room Air 0.00 0.00 12/17/22 05:11 21 General Appearance: No Apparent Distress, WD/WN Allergies: Coded Allergies: codeine (Unverified Allergy, Unknown, 06/14/21) Discharge Summary Date of Admission Dec 13, 2022 at 13:47 Date of Discharge Discharge Date: Dec 19, 2022 Admission Diagnosis Assessment: Junctional tachycardia requiring Cardizem drip Acute congestive heart failure Suspected ischemic cardiomyopathy Hypertension Chronic kidney disease Hypoxia Obesity Suspected MARIAELENA has sleep study scheduled Plan: Cardizem drip Cardiology consult Echo Diuresis O2 Discharge Diagnosis Assessment: Junctional tachycardia requiring Cardizem drip now normal sinus rhythm Acute congestive heart failure Suspected ischemic cardiomyopathy Hypertension Chronic kidney disease Hypoxia Obesity Suspected MARIAELENA has sleep study scheduled Plan: Cardizem drip dc Cardiology consult Echo Diuresis O2 Moved to fourth floor (1) Junctional tachycardia Status: Acute (2) New onset atrial fibrillation Status: Acute (3) CHF (congestive heart failure) Status: Acute GUME SPANN DO Dec 19, 2022 06:00
[2022-12-19] MEDS: MULTIVIT W/MINERALS TAB (THERAGRAN M) PO SCH (06:08)
[2022-12-19 07:57] VITALS: BP 136/87
[2022-12-19] MEDS: KCL 10 MEQ TAB (MICRO K) PO SCH (08:45)
[2022-12-19] MEDS: APIXABAN 5 MG (ELIQUIS) TABLET PO SCH (08:46)
[2022-12-19] MEDS: FUROSEMIDE 40 MG (LASIX) TAB PO SCH (08:46)
[2022-12-19] MEDS: ASPIRIN E.C. 81 MG (ECOTRIN) TAB PO SCH (08:46)
[2022-12-19] MEDS: SENNOSIDES 8.6 MG (SENOKOT) TAB PO SCH (08:46)
[2022-12-19] MEDS: SACUBITRIL/VALSARTAN 24/26 MG (ENTRESTO) TABLET PO SCH (08:46)
[2022-12-19] MEDS: DOCUSATE SODIUM 100 MG (COLACE) CAP PO SCH (08:52)
[2022-12-19] MEDS ORDERED: DIGOXIN 0.125 MG (LANOXIN) TAB PO SCH (09:00)
--- NOTE | 2022-12-19 09:00 | Progress Note - Cardiology ---
Cardiology SOAP Progress Note Subjective: Sitting up in bed this morning No c/o CP or palpitations Feels SOB has continued to improved Objective: I&O/Vital Signs 12/18/22 12/18/22 12/19/22 12/19/22 23:12 23:16 00:47 03:29 Temp 36.5 36.0 Pulse 70 64 66 Resp 20 20 B/P (MAP) 142/79 (100) 143/68 (93) Pulse Ox 92 94 93 O2 Delivery Room Air Room Air Room Air O2 Flow Rate 0.00 0.00 12/19/22 12/19/22 07:00 07:57 Temp 36.6 Pulse 69 84 Resp 18 B/P (MAP) 136/87 (103) Pulse Ox 97 O2 Delivery Room Air 12/19/22 00:00 Intake Total 1552 ml Output Total 1750 ml Balance -198 ml Condition: DP/PT pulses palpable Bruising: mild bruising Constitutional: AAO x 3, well-developed, well-nourished Respiratory: No accessory muscle use, No respiratory distress; chest expansion is symmetric, chest is bilaterally symmetric, lungs clear to auscultation Cardiovascular: regular rate-rhythm; No JVD; S1 and S2 Gastrointestional: No tender; soft, round, audible bowel sounds Extremities: other (bilat mild to mod LE swelling) Neurologic/Psychiatric: other (moves all limbs equally) Skin: No rash on exposed areas, No ulcerations on exposed areas Results/Procedures: Labs Laboratory Tests 12/19/22 05:05: Sodium Level 137, Potassium Level 3.8, Chloride Level 101, Carbon Dioxide Level 23, Anion Gap 13, Blood Urea Nitrogen 11, Creatinine 0.89, Estimat Glomerular Filtration Rate 91, BUN/Creatinine Ratio 12, Glucose Level 124H, Calcium Level 8.7, Corrected Calcium 8.9, Magnesium Level 2.0, Total Bilirubin 0.7, Aspartate Amino Transf (AST/SGOT) 35H, Alanine Aminotransferase (ALT/SGPT) 152H, Alkaline Phosphatase 81, Total Protein 6.1L, Albumin 3.7, Digoxin Level < 0.30L 12/19/22 05:10: White Blood Count 4.5, Red Blood Count 4.50, Hemoglobin 14.9, Hematocrit 43, Mean Corpuscular Volume 96, Mean Corpuscular Hemoglobin 33, Mean Corpuscular Hemoglobin Concent 34, Red Cell Distribution Width 13.2, Platelet Count 140, Mean Platelet Volume 10.9, Immature Granulocyte % (Auto) 1, Neutrophils (%) (Auto) 45, Lymphocytes (%) (Auto) 35, Monocytes (%) (Auto) 18H, Eosinophils (%) (Auto) 1, Basophils (%) (Auto) 0, Neutrophils # (Auto) 2.0, Lymphocytes # (Auto) 1.6, Monocytes # (Auto) 0.8, Eosinophils # (Auto) 0.0, Basophils # (Auto) 0.0, Immature Granulocyte # (Auto) 0.0 Microbiology 12/13/22 MRSA Screen - Final, Complete MRSA not isolated Laboratory Tests 12/18/22 05:20 12/19/22 05:05 12/19/22 05:10 A/P: Assessment: PAF/Fl with intermittent RVR - first dx on ECG of 12-13-22 in the ED - OAC with Eliquis Acute on chronic systolic and diastolic CHF: - Echo 05/08/[address] Reynolds: Normal left ventricular chamber size with mild concentric left ventricular hypertrophy. Normal left ventricular systolic function with an estimated ejection fraction of 60-65%. The left ventricular diastolic function is indeterminate.,The left atrium is mild to moderately dilated.The estimated pulmonary artery systolic pressure is 35 mmHg. - Echocardiogram of 12-06-[address] Reynolds showed: LVEF 45-50%. Hypokinesis of the apical septal and apical myocardium. LA is mod dilatd. RA is mildly dilated. Mild AoV sclerosis with mild AoR. Mod MR. PASP 45 mmHg CAD treated with balloon angioplasty of mid-LAD on 12-17-22 (see below) - Cardiac cath (10/08/2013) at [facility] in [place], [place] by Dr. Beebe: Mild obstruction in the mid segment of the left anterior descending coronary artery and origin of the first diagonal branch of the LAD. Normal right coronary artery and circumflex artery. Normal left ventricular angiogram. - Treadmill nuclear graeme (06/14/2021) by Dr. Reynolds: suboptimal but w/o evidence of ischemia or infarction and with LVEF 71% - Card cath on 12-17-22: LMCA Ok, LAD 80% mid to <10% with balloon angioplasty (2 mm vessel), mod diffuse disease of LAD and RCA, mild plaque of LCx, RCA dominant, LVEDP 11 mmHg, LVEF 40-45% HTN HLD Renal insufficiency, probably acute, probably ATN due to low CO and intermittent hypotension Elevated liver enzymes, worsening - possibly secondary to hepato-biliary congestion d/t decompensated CHF Elevated BMI - approx 37 Suspected sleep apnea Plan: * HR is better controlled on current medication regimen * Complex management due to multiple CV comorbidities (CAD, PAF, CHF) * Add Plavix for a few day (continue apixaban for stroke prophylaxis and ASA for CAD) * He would like to go home. Plan for discharge today from cardiac stand point with out pt f/u PALMER SUTTON Dec 19, 2022 09:00
[2022-12-19] MEDS ORDERED: CLOPIDOGREL 75 MG (PLAVIX) TABLET PO NR (09:30)
--- NOTE | 2022-12-19 10:44 | Progress Note - Cardiology ---
Cardiology SOAP Progress Note Subjective: Gen malaise and weakness No focal weakness Shortness of breath with exertion No cp or palp or syncope No n/v/d Objective: I&O/Vital Signs 12/18/22 12/18/22 12/19/22 12/19/22 23:12 23:16 00:47 03:29 Temp 36.5 36.0 Pulse 70 64 66 Resp 20 20 B/P (MAP) 142/79 (100) 143/68 (93) Pulse Ox 92 94 93 O2 Delivery Room Air Room Air Room Air O2 Flow Rate 0.00 0.00 12/19/22 12/19/22 12/19/22 07:00 07:57 09:44 Temp 36.6 Pulse 69 84 Resp 18 B/P (MAP) 136/87 (103) Pulse Ox 97 O2 Delivery Room Air Room Air 12/19/22 00:00 Intake Total 1552 ml Output Total 1750 ml Balance -198 ml Condition: DP/PT pulses palpable Bruising: mild bruising Constitutional: AAO x 3, well-developed, well-nourished Respiratory: No accessory muscle use, No respiratory distress; chest expansion is symmetric, chest is bilaterally symmetric, lungs clear to auscultation Cardiovascular: regular rate-rhythm; No JVD; S1 and S2 Gastrointestional: No tender; soft, round, audible bowel sounds Extremities: other (bilat mild to mod LE swelling) Neurologic/Psychiatric: other (moves all limbs equally) Skin: No rash on exposed areas, No ulcerations on exposed areas Results/Procedures: Labs Laboratory Tests 12/19/22 05:05: Sodium Level 137, Potassium Level 3.8, Chloride Level 101, Carbon Dioxide Level 23, Anion Gap 13, Blood Urea Nitrogen 11, Creatinine 0.89, Estimat Glomerular Filtration Rate 91, BUN/Creatinine Ratio 12, Glucose Level 124H, Calcium Level 8.7, Corrected Calcium 8.9, Magnesium Level 2.0, Total Bilirubin 0.7, Aspartate Amino Transf (AST/SGOT) 35H, Alanine Aminotransferase (ALT/SGPT) 152H, Alkaline Phosphatase 81, Total Protein 6.1L, Albumin 3.7, Digoxin Level < 0.30L 12/19/22 05:10: White Blood Count 4.5, Red Blood Count 4.50, Hemoglobin 14.9, Hematocrit 43, Mean Corpuscular Volume 96, Mean Corpuscular Hemoglobin 33, Mean Corpuscular Hemoglobin Concent 34, Red Cell Distribution Width 13.2, Platelet Count 140, Mean Platelet Volume 10.9, Immature Granulocyte % (Auto) 1, Neutrophils (%) (Auto) 45, Lymphocytes (%) (Auto) 35, Monocytes (%) (Auto) 18H, Eosinophils (%) (Auto) 1, Basophils (%) (Auto) 0, Neutrophils # (Auto) 2.0, Lymphocytes # (Auto) 1.6, Monocytes # (Auto) 0.8, Eosinophils # (Auto) 0.0, Basophils # (Auto) 0.0, Immature Granulocyte # (Auto) 0.0 Microbiology 12/13/22 MRSA Screen - Final, Complete MRSA not isolated Laboratory Tests 12/18/22 05:20 12/19/22 05:05 12/19/22 05:10 A/P: Assessment: PAF/Fl with intermittent RVR - first dx on ECG of 12-13-22 in the ED - OAC with Eliquis Acute on chronic systolic and diastolic CHF: - Echo 05/08/[address] Reynolds: Normal left ventricular chamber size with mild concentric left ventricular hypertrophy. Normal left ventricular systolic function with an estimated ejection fraction of 60-65%. The left ventricular diastolic function is indeterminate.,The left atrium is mild to moderately dilated.The estimated pulmonary artery systolic pressure is 35 mmHg. - Echocardiogram of 12-06-[address] Reynolds showed: LVEF 45-50%. Hypokinesis of the apical septal and apical myocardium. LA is mod dilatd. RA is mildly dilated. Mild AoV sclerosis with mild AoR. Mod MR. PASP 45 mmHg CAD treated with balloon angioplasty of mid-LAD on 12-17-22 (see below) - Cardiac cath (10/08/2013) at [facility] in [place], [place] by Dr. Beebe: Mild obstruction in the mid segment of the left anterior descending coronary artery and origin of the first diagonal branch of the LAD. Normal right coronary artery and circumflex artery. Normal left ventricular angiogram. - Treadmill nuclear graeme (06/14/2021) by Dr. Reynolds: suboptimal but w/o evidence of ischemia or infarction and with LVEF 71% - Card cath on 12-17-22: LMCA Ok, LAD 80% mid to <10% with balloon angioplasty (2 mm vessel), mod diffuse disease of LAD and RCA, mild plaque of LCx, RCA domin ant, LVEDP 11 mmHg, LVEF 40-45% HTN HLD Renal insufficiency, probably acute, probably ATN due to low CO and intermittent hypotension Elevated liver enzymes, worsening - possibly secondary to hepato-biliary congestion d/t decompensated CHF Elevated BMI - approx 37 Suspected sleep apnea Plan: * HR is better controlled on current medication regimen * Complex management due to multiple CV comorbidities (CAD, PAF, CHF) * He would like to go home. Plan for discharge today from cardiac stand point with out pt f/u * I discussed his CV issues in detail with him * I discussed his case with Dr Malave this am RETA VARELA MD FACP FAC CCDS Dec 19, 2022 10:44
[2022-12-19 11:38] VITALS: BP 126/81
[2022-12-19] MEDS ORDERED: HYDROmorphone 2 MG/ML VIAL (DILAUDID) IV PRN (12:00)
[2022-12-19 13:47] VITALS: BP 126/81
--- NOTE | 2022-12-19 14:38 | Conscious Sedation/ASA ---
QUEENIE,12/19/22 1438: Conscious Sedation Pre-Proced ASA Score For ASA 3 and 4: Consider anesthesia and medical clearance. Also, for patients with a history of failed moderate sedation consider anesthesia. Airway Lungs Heart ASA score ASA 1: a normal healthy patient ASA 2: a patient with a mild systemic disease (mid diabetes, controlled hypertension, obesity ASA 3: a patient with a severe systemic disease that limits activity (angina, COPD, prior Myocardial infarction) ASA 4: a patient with an incapacitating disease that is a constant threat to life (CHF, renal failure) ASA 5: a moribund patient not expected to survive 24 hrs. (ruptured aneurysm) ASA 6: a declared brain- patient whose organs are being harvested. For emergent operations, add the letter E after the classification Sedation Plan The patient is an appropriate candidate to undergo the planned procedure, sedation, and anesthesia. The patient immediately re-assessed prior to indication. RETA VARELA MD [facility] 12/20/22 1010: Conscious Sedation Pre-Proced ASA Score 3 Mallampati Classification Grade 2 Sedation Plan Analgesia, Amnesia, Plan communicated to team members QUEENIE,NovDec 19, 2022 14:38 RETA VARELA MD [facility] Dec 20, 2022 10:10
== END 2022-12-19 13:53 | disposition home or self-care (01) | DRG 250 ==
LOC: EDUNIT# 11:52 → ER 11:54 → ICU 13:47 → 4TH 12-15 13:17
PROVIDERS: ADMIT Internal Medicine; ATTEND Internal Medicine
PROC: 02703ZZ Dilation of Coronary Artery, One Artery, Percutaneous Approach (ICD-10-PCS; principal; 2022-12-17)
PROC: 4A033BC Measurement of Arterial Pressure, Coronary, Percutaneous Approach (ICD-10-PCS; 2022-12-17)
PROC: 4A023N7 Measurement of Cardiac Sampling and Pressure, Left Heart, Percutaneous Approach (ICD-10-PCS; 2022-12-17)
PROC: B2111ZZ Fluoroscopy of Multiple Coronary Arteries using Low Osmolar Contrast (ICD-10-PCS; 2022-12-17)
PROC: B2151ZZ Fluoroscopy of Left Heart using Low Osmolar Contrast (ICD-10-PCS; 2022-12-17)
DX: I13.0 Hypertensive heart and chronic kidney disease with heart failure and stage 1 through stage 4 chronic kidney disease, or unspecified chronic kidney disease (principal); I50.43 Acute on chronic combined systolic (congestive) and diastolic (congestive) heart failure; N17.0 Acute kidney failure with tubular necrosis; I47.1 Supraventricular tachycardia; I45.2 Bifascicular block; N18.9 Chronic kidney disease, unspecified; I25.10 Atherosclerotic heart disease of native coronary artery without angina pectoris; I48.0 Paroxysmal atrial fibrillation; Z66 Do not resuscitate; E78.00 Pure hypercholesterolemia, unspecified; E87.6 Hypokalemia; G47.33 Obstructive sleep apnea (adult) (pediatric); I49.1 Atrial premature depolarization; I49.3 Ventricular premature depolarization; I25.5 Ischemic cardiomyopathy; E66.9 Obesity, unspecified; Z68.37 Body mass index [BMI] 37.0-37.9, adult; R09.02 Hypoxemia; I27.20 Pulmonary hypertension, unspecified; I08.0 Rheumatic disorders of both mitral and aortic valves; Z95.5 Presence of coronary angioplasty implant and graft; Z87.891 Personal history of nicotine dependence; Z79.82 Long term (current) use of aspirin; Z88.5 Allergy status to narcotic agent; Z23 Encounter for immunization
CPT/HCPCS: 36415; 71045; 80053; 80061; 80162; 83735; 83874; 83880; 84100; 84484; 85007; 85025; 85027; 85610; 85730; 87081; 90686; 93005; 93041; 93458; 94760

== ENCOUNTER → 2023-02-21 | Outpatient (RCR) | payer MEDICARE ==
[~2023-02-21] MED LIST changes: +AMLO-250 PO; +APIX5TAB PO; +ASPI-1238 PO; +ATOR40TA70 PO; +CARV3.122 PO; +CITA20TA9 PO; +DIGO125T18 PO; +DILT180C85 PO; +FURO20TA4 PO; +LISI20TA26 PO; +METO-333 PO; +MULT-1136 PO; -RT-ALBUTEROL SULF 2.5 MG/3 ML PRE-MIX VIAL INH ONE; +SACU1TAB2 PO
== END | disposition home or self-care (01) ==
LOC: CR 02-10 09:47
PROVIDERS: ATTEND Internal Medicine Cardiovascular Disease
DX: Z29.8 Encounter for other specified prophylactic measures (principal); I25.10 Atherosclerotic heart disease of native coronary artery without angina pectoris; Z95.5 Presence of coronary angioplasty implant and graft
CPT/HCPCS: 93798

== ENCOUNTER 2023-03-21 11:10 | Outpatient (RCR) | payer MEDICARE | END 2023-03-23 | disposition home or self-care (01) | LOC: CR 11:10 | PROVIDERS: ATTEND Internal Medicine Cardiovascular Disease | DX: Z29.8 Encounter for other specified prophylactic measures (principal); I25.10 Atherosclerotic heart disease of native coronary artery without angina pectoris; Z95.5 Presence of coronary angioplasty implant and graft | CPT/HCPCS: 93798 ==

== ENCOUNTER 2023-03-24 07:44 | Outpatient (RCR) | payer MEDICARE ==
[2023-04-08] MEDS ORDERED: DILT180T9 PO (09:59)
[2023-04-08] MEDS ORDERED: FURO40TA4 PO (09:59)
[2023-04-08] MEDS ORDERED: DRON400T6 PO (09:59)
[2023-04-08] MEDS ORDERED: RIVA20TA PO (09:59)
[2023-04-08] MEDS ORDERED: ATOR40TA70 PO (09:59)
[2023-04-08] MEDS ORDERED: ACET325T38 PO (09:59)
[2023-04-08] MEDS ORDERED: DULO30CA49 PO (09:59)
[2023-04-08] MEDS ORDERED: CARV12.53 PO (09:59)
[2023-04-08] MEDS ORDERED: ASPI-1238 PO (09:59)
[2023-04-08] MEDS ORDERED: MULT-1136 PO (09:59)
[2023-04-08] MEDS ORDERED: LISI20TA26 PO (09:59)
== END 2023-04-23 | disposition home or self-care (01) ==
LOC: CR 07:44
PROVIDERS: ATTEND Internal Medicine Cardiovascular Disease
DX: Z29.8 Encounter for other specified prophylactic measures (principal); I25.10 Atherosclerotic heart disease of native coronary artery without angina pectoris; Z95.5 Presence of coronary angioplasty implant and graft
CPT/HCPCS: 93798

== ENCOUNTER 2023-04-08 08:53 | Day surgery (SDC) | payer MEDICARE ==
[~2023-04-08] VITALS: Ht 172 cm; Wt 108.7 kg
[2023-04-08] MEDS ORDERED: NS IV 1000 ML 1,000 ML IV ONE (09:15)
[2023-04-08] MEDS ORDERED: NS IV 1000 ML 1,000 ML ONE (09:18)
[2023-04-08 09:32] VITALS: BP 146/105
[2023-04-08 09:41] LABS: HEMATOCRIT 38 % (40-54); HEMOGLOBIN 13.3 g/dL (13.3-17.7); MEAN CORPUSCULAR HEMOGLOBIN 34 pg (25-34); MEAN CORPUSCULAR HGB CONC 35 g/dL (32-36); MEAN CORPUSCULAR VOLUME 98 fL (80-99); MEAN PLATELET VOLUME 10.4 fL (9.0-12.2); PLATELET COUNT 185 10^3/uL (130-400); WHITE BLOOD COUNT 4.9 10^3/uL (4.3-11.0)
[2023-04-08] MEDS ORDERED: proPOfol 200 MG/20 ML (DIPRIVAN) VIAL IV ONE (09:45)
[2023-04-08 09:54] LABS: INR 1.2 (0.8-1.4); PROTHROMBIN TIME PATIENT 15.5 SEC (12.2-14.7)
[2023-04-08] MEDS ORDERED: ASPI-1238 PO (09:59)
[2023-04-08] MEDS ORDERED: ACET325T38 PO (09:59)
[2023-04-08] MEDS ORDERED: LISI20TA26 PO (09:59)
[2023-04-08] MEDS ORDERED: RIVA20TA PO (09:59)
[2023-04-08] MEDS ORDERED: MULT-1136 PO (09:59)
[2023-04-08] MEDS ORDERED: DULO30CA49 PO (09:59)
[2023-04-08] MEDS ORDERED: DRON400T6 PO (09:59)
[2023-04-08] MEDS ORDERED: ATOR40TA70 PO (09:59)
[2023-04-08] MEDS ORDERED: DILT180T9 PO (09:59)
[2023-04-08] MEDS ORDERED: FURO40TA4 PO (09:59)
[2023-04-08] MEDS ORDERED: CARV12.53 PO (09:59)
[2023-04-08 10:03] LABS: ALBUMIN 4.4 GM/DL (3.2-4.5); BILIRUBIN,TOTAL 0.6 MG/DL (0.1-1.0); CALCIUM 9.4 MG/DL (8.5-10.1); CREATININE SERUM 1.2 MG/DL (0.60-1.30); POTASSIUM 4.4 MMOL/L (3.6-5.0)
[2023-04-08 10:10] VITALS: BP 131/95
[2023-04-08 10:15] VITALS: BP 129/85
[2023-04-08 10:20] VITALS: BP 127/82
[2023-04-08 10:25] VITALS: BP 127/75
[2023-04-08 10:30] VITALS: BP 141/79
--- NOTE | 2023-04-08 10:30 | Anesthesia-General Post-Op ---
MAC Patient Condition Mental Status/LOC: Same as Preop Cardiovascular: Satisfactory Nausea/Vomiting: Absent Respiratory: Satisfactory Pain: Controlled Complications: Absent Post Op Complications Complications None Follow Up Care/Instructions Patient Instructions None needed. Anesthesiology Discharge Order Discharge Order Patient is doing well, no complaints, stable vital signs, no apparent adverse anesthesia problems. No complications reported per nursing. TRACY WITT CRNA April 08, 2023 10:30
--- NOTE | 2023-04-08 19:16 | OPERATIVE REPORT ---
DATE OF SERVICE: 04/08/2023 EXTERNAL ELECTRICAL CARDIOVERSION REPORT POSTOPERATIVE DIAGNOSIS: Atrial fibrillation. POSTOPERATIVE DIAGNOSIS: Sinus rhythm with premature atrial and ventricular contractions. PROCEDURE: External electrical cardioversion. INDICATIONS AND PROCEDURE IN DETAIL: The patient is a 72-year-old gentleman who has atrial fibrillation. He was fully anticoagulated with rivaroxaban for 4 weeks prior to this cardioversion and the anticoagulation is to be continued without any interruption. [facility] The nurse diesel engine assembler provided short-acting anesthesia. 120 joules of synchronized shock was given, which converted atrial fibrillation to sinus rhythm and he tolerated the procedure well. Job ID: [id number] DocumentID: [id number] Dictated Date: 04/08/2023 10:42:12 School Laboratory Technician Date: 04/08/2023 19:15:00 Dictated By: RETA VARELA MD; STEFANI; FACP; FACC;
== END 2023-04-08 10:50 | disposition home or self-care (01) ==
LOC: CATH 08:53
PROVIDERS: ATTEND Internal Medicine Cardiovascular Disease
DX: I48.0 Paroxysmal atrial fibrillation (principal); I49.2 Junctional premature depolarization; E66.9 Obesity, unspecified; I50.23 Acute on chronic systolic (congestive) heart failure; I25.10 Atherosclerotic heart disease of native coronary artery without angina pectoris; I11.0 Hypertensive heart disease with heart failure; I35.1 Nonrheumatic aortic (valve) insufficiency; E78.2 Mixed hyperlipidemia; N28.9 Disorder of kidney and ureter, unspecified; Z68.36 Body mass index [BMI] 36.0-36.9, adult; Z79.01 Long term (current) use of anticoagulants; Z91.190 Patient's noncompliance with other medical treatment and regimen due to financial hardship
CPT/HCPCS: 36415; 80053; 80061; 85027; 85610; 85730; 87081; 92960; 93005

== ENCOUNTER → 2023-09-05 | Outpatient (CLI) | payer MEDICARE ==
[~2023-09-05] MED LIST changes: +ACET325T38 PO; +CARV12.53 PO; +DILT180T9 PO; +DRON400T6 PO; +DULO30CA49 PO; +FURO40TA4 PO; +RIVA20TA PO
== END ==
LOC: CARD 08:29
PROVIDERS: ATTEND Internal Medicine Cardiovascular Disease
DX: I48.0 Paroxysmal atrial fibrillation (principal)
CPT/HCPCS: 93225; 93226